=== PATIENT | male | born 1980 | race Caucasian/White ===

== ENCOUNTER 2019-11-03 23:48 | Emergency (ER) | payer OTHER, SELFPAY ==
[2019-11-03 23:57] VITALS: BP 134/80; PULSE 87; RESP 18; TEMP 37.1; O2SAT 97
--- NOTE | 2019-11-04 00:12 | ED.DENTAL ---
HPI - Dental/Oral General Chief complaint: Dental/Oral Stated complaint: abscess on face Time Seen by Provider: 11/03/19 23:57 Source: patient Mode of arrival: Family Vehicle Limitations: no limitations History of Present Illness HPI Narrative: 38-year-old gentleman with diffuse dental caries and periodontal disease has been noticing increasing pain in the right maxillary area. Today was pressing on the outside of his cheek and felt a gush of fluid and blood into his mouth. Also noted pain and increased swelling across the maxilla. Continues to drain into his mouth. He describes no fevers or chills. He does not have access to dental insurance or a dentist at this time but he and his are going to be able to have access to dental insurance in the near future in do have plans for more definitive care. Has chronic reflux with acid refluxing into his mouth and helps with tooth decay. He denies any recreational drug use, meth use or history with addiction. Related Data Previous Rx's Medication Instructions Recorded adapalene 0.1 % topical cream 1 applictn TOP BEDTIME #45 gram 09/29/18 amoxicillin 500 mg PO TID #21 cap 11/04/19 oxycodone-acetaminophen 1 tab PO Q6H PRN #14 tab 11/04/19 Allergies Allergy/AdvReac Type Severity Reaction Status Date / Time No Known Drug Allergies Allergy Verified 09/29/18 11:06 Review of Systems Review of Systems Narrative: Pertinent positive and negative findings as per HPI Remainder of review of systems is otherwise unremarkable for Constitutional: Fevers, chills, weakness ENT: No sore throat, neck pain, ear pain CV: Chest pain, palpitations, dyspnea on exertion Respiratory: Cough, wheeze, dyspnea GI: Nausea, vomiting, diarrhea, change in bowel habits, black or bloody stools Patient History Medical History Dental caries (Acute) Social History Smoking Status: Current every day smoker Smoking Status: Current every day smoker alcohol intake frequency: holidays/special occasions only Substance Use Type: marijuana Exam Narrative Exam Narrative: General: Alert appropriate in no acute distress HEENT: Diffuse caries, multiple broken teeth, periodontal disease with minor drainage appreciated, upper right side with no obvious abscess collection remaining. There is some swelling across the maxilla he has minor anterior cervical adenopathy Respiratory: Able to speak in full sentences, no obvious respiratory distress Cardiac: Regular rate and rhythm no murmurs Skin: No obvious rashes, warm and dry Neurologic: Grossly intact no obvious asymmetries or abnormalities Psych, appropriate insight and affect, cooperative Initial Vital Signs Initial Vital Signs: Vital Signs Temperature 98.8 F 11/03/19 23:57 Pulse Rate 87 11/03/19 23:57 Respiratory Rate 18 11/03/19 23:57 Blood Pressure 134/80 11/03/19 23:57 Pulse Oximetry 97 11/03/19 23:57 Course Orders Ordered: Discontinued Medications Amoxicillin (Trimox) 500 mg PO NOW ONE Stop: 11/04/19 00:07 Oxycodone/Acetaminophen (Percocet 5/325) 2 tab PO NOW ONE Stop: 11/04/19 00:07 Vital Signs Vital signs: Vital Signs - 8 hr 11/03/19 23:57 Temperature 98.8 F Pulse Rate 87 Respiratory Rate 18 Blood Pressure 134/80 Pulse Oximetry 97 MDM - Dental/Oral MDM Narrative Medical decision making narrative: Severe and diffuse dental decay with multiple sites for abscesses with nose single spot that is the obvious drainage point. Slight facial fullness. Antibiotics will certainly be appropriate definitive dental care would be most appropriate but unfortunately they are unable to access that. He is given a prescription for amoxicillin and 14 tablets of Percocet which he will use along with the Aleve he has at home. He is safe for home discharge Discharge Plan Departure Patient Disposition: Home Clinical Impression: Dental abscess, Dental caries Instructions: DI for Dental Pain Activity Restrictions/Additional Instructions: The fact that the infection has a drainage pathway into your mouth is reassuring. It may still continue to drain but will not continue to spread into other spaces. Using 400 mg of ibuprofen (2 ofzs-byx-sgxtxfo pills) and 1 Tylenol every 6 hours can be very helpful in controlling pain. For severe pain using 400mmg Ibuprofen and 1 percoset can help. Amoxicillin (antibioitc) will help with the infection but the real problem is the diffuse decay present. You will eventually need all of those upper teeth pulled. Please follow up with a dentist when you are able to do so. I wish you the best Prescriptions: New amoxicillin 500 mg capsule 500 mg PO TID Qty: 21 RF: 0 oxycodone-acetaminophen 5-300 mg tablet 1 tab PO Q6H PRN (Reason: pain) Qty: 14 RF: 0 No Action adapalene 0.1 % cream 1 applictn TOP BEDTIME Qty: 45 RF: 0 Referrals: Forest Sewell MD [Primary Care Provider] -
[2019-11-04] MEDS: OXYCODONE/ACETAMINOPHEN 5/325 TABLET 2 TAB PO (00:14)
[2019-11-04] MEDS: AMOXICILLIN 250 MG CAPSULE 500 MG PO (00:14)
--- NOTE | 2019-11-04 13:25 | PC.NURSE ---
Received phone call from [facility]. Provider sent new e script as substitution.
== END 2019-11-04 00:20 | disposition home or self-care (01) ==
PROVIDERS: Emergency Provider Emergency Medicine; Family Provider Family Medicine; PCP Family Medicine
DX: K04.7 Periapical abscess without sinus (principal); K02.9 Dental caries, unspecified
CPT/HCPCS: 99283

== ENCOUNTER 2021-02-16 14:37 | Emergency (ER) | payer OTHER, SELFPAY ==
[2021-02-16 14:46] VITALS: BP 132/74; PULSE 97; RESP 18; TEMP 37.4; O2SAT 99
--- NOTE | 2021-02-16 14:54 | ED_ITS ---
HPI - General Adult General Chief complaint: Dental/Oral Stated complaint: pressure behind eye, jaw and muslim, dizzy, abcess Time Seen by Provider: 02/16/21 14:46 Source: patient Mode of arrival: Ambulatory Limitations: no limitations History of Present Illness HPI narrative: Patient is a 40-year-old male who is here for evaluation of a swelling to his right upper jaw all most consistent with an abscess. He has had dental abscesses in the past. He also states that his right muslim hurts. He is dizzy and also has pressure behind his right eye. Has been doing Tylenol/ibuprofen. They state that they have attempted to contact a dentist however they have been unable to do so up to this point. He has been told that he needs to have his teeth extracted Related Data Previous Rx's Medication Instructions Recorded adapalene 0.1 % topical cream 1 applictn TOP BEDTIME #45 gram 09/29/18 penicillin V potassium 500 mg 500 mg PO QID 10 Days #40 tab 02/16/21 tablet Allergies Allergy/AdvReac Type Severity Reaction Status Date / Time No Known Drug Allergies Allergy Verified 09/29/18 11:06 Review of Systems Constitutional Comments: No fevers Eyes Comments: Pain behind the right eye ENT Comments: No sore throat Respiratory Respiratory: Reports system reviewed and no additional complaints, except as documented Integumentary/Breasts Skin/Breast: Reports system reviewed and no additional complaints, except as documented Hematologic/Lymphatic On Anticoagulants: No Patient History Medical History (Updated 02/16/21 @ 14:57 by Wood Spangler DO) Dental caries Social History Smoking Status: Current every day smoker Smoking Status: Current every day smoker alcohol intake frequency: holidays/special occasions only Substance Use Type: marijuana Exam Initial Vital Signs Initial Vital Signs: Vital Signs Temperature 99.4 F 02/16/21 14:46 Pulse Rate 97 H 02/16/21 14:46 Respiratory Rate 18 02/16/21 14:46 Blood Pressure 132/74 02/16/21 14:46 Pulse Oximetry 99 02/16/21 14:46 Const General: cooperative and comfortable HENMT Head: normal to inspection and normocephalic Ears: hearing grossly normal bilaterally Face and sinus: other (Swelling right maxilla) Teeth and gingiva: poor dentition Throat: posterior oropharynx normal Neck Neck: normal visual inspection Resp Effort & Inspection: normal respiratory effort Auscultation: clear to auscultation bilaterally Cardio Rate: regular rate GI Inspection: normal to inspection Skin General: no rashes or lesions noted Extrem General: normal to inspection Psych Appearance: grossly normal Course Orders Ordered: Discontinued Medications Ampicillin Sodium/Sulbactam (Sodium 3 gm/ Sodium Chloride) 100 mls @ 100 mls/hr IV NOW ONE Stop: 02/16/21 14:54 Last Infusion: 02/16/21 16:02 Dose: 0 mls/hr Documented by: Admin: 02/16/21 15:01 Dose: 100 mls/hr Documented by: SUMMER Vital Signs Vital signs: Vital Signs - 8 hr 02/16/21 14:46 Temperature 99.4 F Pulse Rate 97 H Respiratory Rate 18 Blood Pressure 132/74 Pulse Oximetry 99 Medical Decision Making MDM Narrative Medical decision making narrative: No respiratory distress, vital signs unremarkable. Is tolerating oral intake. Does have swelling in his right upper maxillary area but no fluctuance in this area. No defined abscess seen intraoral that would be amenable to incision and drainage. No indication for CT scan today. He was given antibiotics through the IV and was sent home with a prescription for antibiotics. Was informed that he does need to make contact with a dentist for more definitive treatment. He expressed understanding and agreement. Discharge Plan Departure Patient Disposition: Home Clinical Impression: Dental abscess Instructions: Tooth Abscess Activity Restrictions/Additional Instructions: Your physical exam today is consistent with a dental infection however there was no abscess noted inside your mouth that would be amendable to drainage here in the emergency department. It is important that you may contact with a dentist as the specialty will be required for more definitive treatment of your symptoms. Take the antibiotics as directed. Return to the emergency department for any new symptoms. Prescriptions: New penicillin V potassium 500 mg tablet 500 mg PO QID 10 Days Qty: 40 RF: 0 No Action adapalene 0.1 % cream 1 applictn TOP BEDTIME Qty: 45 RF: 0 Referrals: Forest Sewell MD [Primary Care Provider] -
[2021-02-16] MEDS: AMPICILLIN/SULBACTAM 3 GM 3 GM in SODIUM CHLORIDE 0.9% 100 ML IV (15:01)
[2021-02-16] MEDS: KETOROLAC 30 MG/ML VIAL IV (16:27)
== END 2021-02-16 16:28 | disposition home or self-care (01) ==
PROVIDERS: Emergency Provider Emergency Medicine; Family Provider Family Medicine; PCP Family Medicine
DX: K04.7 Periapical abscess without sinus (principal); R51.9 Headache, unspecified; R42 Dizziness and giddiness
CPT/HCPCS: 36415; 96365; 96375; 99284; J0295; J1885

== ENCOUNTER 2021-03-14 11:31 | Emergency (ER) | payer OTHER, SELFPAY ==
[2021-03-14] VITALS (11 sets, daily range): BP systolic 114–174; BP diastolic 76–87; PULSE 52–94; RESP 18–20; TEMP 36.6–36.8; O2SAT 95–100; BMI 20.7
--- NOTE | 2021-03-14 11:40 | PC.NURSE ---
pH bilateral eyes 7.0
--- NOTE | 2021-03-14 12:21 | DI.RAD.S_ITS ---
PROCEDURE: XR CHEST 1V INDICATIONS: gasoline ingestion TECHNIQUE: One view of the chest was acquired. COMPARISON: [facility], , CHEST 2 VIEW, 06/18/2017, 20:45. FINDINGS: Surgical changes and devices: None. Lungs and pleura: Lungs are clear. No pleural effusions or pneumothorax. Mediastinum: Mediastinal contours appear normal. Heart size is normal. Bones and chest wall: No suspicious bony lesions. Overlying soft tissues appear unremarkable. IMPRESSION: No acute cardiopulmonary pathology. Dictated by: Keaton Reid M.D. on 03/14/2021 at 13:00 Approved by: Keaton Reid M.D. on 03/14/2021 at 13:01
--- NOTE | 2021-03-14 12:22 | ED.GENADULT ---
HPI - General Adult General Chief complaint: Environmental Exposure Stated complaint: Got gasoline down throat/puking blood Time Seen by Provider: 03/14/21 12:09 Source: patient Mode of arrival: Ambulatory History of Present Illness HPI narrative: 40-year-old gentleman with state history of hiatal hernia severe reflux with significant dental decay due to the severity of his reflux presents after accidentally ingesting gasoline while at work. 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 He washes eyes out and tried to rinse his face off as well as possible. He vomited immediately for approximately 5 minutes. 20 minutes later he again had severe nausea and significant vomiting with clots of red blood. He continues to be somewhat nauseated and complaining of upper abdominal pain. Vomiting has stopped. He is noticing some skin irritation over his face and upper chest. He complains of mild dyspnea but no significant cough. Related Data Previous Rx's Medication Instructions Recorded adapalene 0.1 % topical cream 1 applictn TOP BEDTIME #45 gram 09/29/18 Allergies Allergy/AdvReac Type Severity Reaction Status Date / Time No Known Drug Allergies Allergy Verified 09/29/18 11:06 Review of Systems Review of Systems Narrative: Pertinent positive and negative findings as per HPI Remainder of review of systems is otherwise unremarkable for Constitutional: Fevers, chills, weakness ENT: No sore throat, neck pain, ear pain CV: Chest pain, palpitations, : Dysuria, hematuria, Patient History Medical History (Updated 03/14/21 @ 18:00 by Yolande Stephenson MD) Dental caries Social History Smoking Status: Current every day smoker Smoking Status: Current every day smoker alcohol intake frequency: holidays/special occasions only Substance Use Type: marijuana Exam Narrative Exam Narrative: General: Healthy appearing, in mild distress. Able to give a complete and coherent history. Well-nourished well-developed HEENT: Moist mucous membranes, normal sclera with reactive pupils, minimally injected with normal vision and normal pH of both eyes. Minor irritation to the skin around his nose and mouth under his aranda. Neck: No JVD, supple. incidentally noted very black 2-3 mm freckle left supraclavicular fossa. Minor erythema over the neck and upper chest from superficial exposure Respiratory: Lungs are clear to auscultation, no wheezing no rales no rhonchi. Full and symmetrical air movement Cardiac: Regular rate and rhythm no murmurs no bruits Abdomen: Soft, minor tenderness in the epigastrium without rebound or guarding, good bowel tones, no flank pain Skin: Warm and dry, irritation as described above Neurologic: Grossly neurologically intact with no obvious asymmetries or abnormalities Extremities: No trauma, well perfused Psych: Cooperative, appropriate insight and affect Initial Vital Signs Initial Vital Signs: Vital Signs Temperature 98.2 F 03/14/21 11:41 Pulse Rate 94 H 03/14/21 11:41 Respiratory Rate 18 03/14/21 11:41 Blood Pressure 174/87 H 03/14/21 11:41 Pulse Oximetry 95 03/14/21 11:41 Course Orders Ordered: ED Orders 03/14/21 12:21 XR chest 1V Stat 03/14/21 12:43 Complete Blood Count AUTO DIFF Stat Comprehensive Metabolic Panel Stat Type and Screen Stat 03/14/21 16:52 XR chest 1V Stat Discontinued Medications Sodium Chloride (Normal Saline 0.9%) 1,000 mls @ 1,000 mls/hr IV BOLUS ONE Stop: 03/14/21 13:19 Last Infusion: 03/14/21 13:57 Dose: 0 mls/hr Documented by: Admin: 03/14/21 12:41 Dose: 1,000 mls/hr Documented by: ADELE Ondansetron HCl (Ondansetron 4 Mg/2 Ml Inj) 4 mg IV NOW ONE Stop: 03/14/21 12:21 Last Admin: 03/14/21 12:41 Dose: 4 mg Documented by: ADELE Pantoprazole Sodium (Pantoprazole 40 Mg Vial) 40 mg IV NOW ONE Stop: 03/14/21 12:21 Last Admin: 03/14/21 12:41 Dose: 40 mg Documented by: ADELE Vital Signs Vital signs: Vital Signs - 8 hr 03/14/21 11:41 03/14/21 12:44 03/14/21 12:45 Temperature 98.2 F Pulse Rate 94 H 67 Respiratory Rate 18 Blood Pressure 174/87 H 134/81 Pulse Oximetry 95 99 99 03/14/21 13:00 03/14/21 13:30 03/14/21 14:00 Temperature Pulse Rate 62 61 61 Respiratory Rate Blood Pressure 129/81 123/83 132/81 Pulse Oximetry 100 100 100 03/14/21 14:30 03/14/21 15:00 03/14/21 15:30 Temperature Pulse Rate 58 L 52 L 57 L Respiratory Rate Blood Pressure 126/77 114/80 116/79 Pulse Oximetry 100 100 100 03/14/21 16:00 Temperature Pulse Rate 64 Respiratory Rate Blood Pressure 124/76 Pulse Oximetry 100 Medical Decision Making Lab Data Result diagrams: 03/14/21 12:43 03/14/21 12:43 Labs: Lab Results 03/14/21 03/14/21 03/14/21 Range/Units 12:43 12:43 12:43 WBC 11.2 H (4.5-11.0) X10^3/uL RBC 4.52 (4.5-5.9) X10^6/uL Hgb 14.2 (13.5-17.5) g/dL Hct 42.6 (41-53) % MCV 94.1 (80-100) fL MCH 31.4 (26-34) PG MCHC 33.3 (30-36) % RDW 13.7 (11.6-14.8) % Plt Count 301 (150-400) X10^3/uL Neut % (Auto) 69.0 (50-75) % Lymph % (Auto) 20.2 L (25-40) % [place] % (Auto) 9.3 (3-14) % Eos % (Auto) 0.9 L (2-4) % Baso % (Auto) 0.6 (0-2) % Neut # (Auto) 7700 H (4814-5085) /uL Lymph # (Auto) 2300 (6755-5778) /uL [place] # (Auto) 1000 H (0-900) /uL Eos # (Auto) 100 (0-450) /uL Baso # (Auto) 100 (0-100) /uL Sodium 137 (137-145) mmol/L Potassium 4.3 (3.4-5.1) mmol/L Chloride 102 (98-107) mmol/L Carbon Dioxide 27 (22-32) mmol/L BUN 14 (9-20) mg/dL Creatinine 0.59 L (0.66-1.25) mg/dL Estimated GFR > 60.0 (>60) mL/min BUN/Creatinine Ratio 23.7 H (6-22) Glucose 108 H (70-100) mg/dL Calcium 9.6 (8.4-10.2) mg/dL Total Bilirubin 0.4 (0.2-1.3) mg/dL AST 39 (17-59) IU/L ALT 25 (<50) IU/L Alkaline Phosphatase 55 (38-126) U/L Total Protein 7.5 (6.3-8.2) g/dL Albumin 4.7 (3.5-5.0) g/dL Globulin 2.8 (1.7-4.1) g/dL Albumin/Globulin Ratio 1.7 (1.0-2.8) Blood Type A Positive Antibody Screen Negative Imaging Data Chest x-ray: Radiologist's Impression: FINDINGS: Surgical changes and devices: None. Lungs and pleura: Lungs are clear. No pleural effusions or pneumothorax. Mediastinum: Mediastinal contours appear normal. Heart size is normal. Bones and chest wall: No suspicious bony lesions. Overlying soft tissues appear unremarkable. IMPRESSION: No acute cardiopulmonary pathology. Dictated by: Keaton Reid M.D. on 03/14/2021 at 13:00 Repeat prior to D/c FINDINGS: Surgical changes and devices: None. Lungs and pleura: The lungs remain clear. No developing pneumothorax or effusion. Mediastinum: No central venous congestion. Cardiomediastinal contour is stable. Bones and chest wall: No suspicious bony lesions. Overlying soft tissues appear unremarkable. IMPRESSION: 1. No radiographic evidence of pulmonary edema. Dictated by: Yee Samson M.D. on 03/14/2021 at 17:14 [facility] Narrative Medical decision making narrative: Otherwise healthy 40-year-old gentleman with accidental ingestion of gasoline while at work today. eye wash was adequate at work He takes a shower after closing remove here in the emergency department in face and upper chest skin irritation are improving Mildly short of breath without wheezing or crackles. 2 L of oxygen is provided for comfort. Initial labs are reassuring At 4:30 p.m. will repeat chest x-ray and re-evaluate pulmonary status. Chest x-ray is unremarkable. Patient is feeling well. He is hungry and nausea is completely resolved. He has not had any additional vomiting since arriving in the emergency department. After 6 hours of observation in the emergency department he is safe for home discharge Discharge Plan Departure Patient Disposition: Home Clinical Impression: Exposure to polycyclic aromatic hydrocarbons Instructions: DI for Inhalation Injury Activity Restrictions/Additional Instructions: Thank you for coming in today You did a perfect job of rinsing your eyes your face of soon as you were able to do so Your lab work was very reassuring. You have not had any additional vomiting or bleeding during your 6 hour stay in the emergency department. Your initial and then repeat chest x-ray were both very reassuring. If you have worsening symptoms or new developments, please feel free to return to the emergency department. Prescriptions: No Action adapalene 0.1 % cream 1 applictn TOP BEDTIME Qty: 45 RF: 0 Referrals: Forest Sewell MD [Primary Care Provider] -
[2021-03-14] MEDS: ONDANSETRON 4 MG/2 ML INJ IV (12:41)
[2021-03-14] MEDS: SODIUM CHLORIDE 0.9% 1,000 ML 1000 ML IV (12:41)
[2021-03-14] MEDS: PANTOPRAZOLE 40 MG VIAL IV (12:41)
[2021-03-14 12:52] LABS: Add Manual Diff / Slide Review NO; Basophils Absolute Auto 100 /uL (0-100); Basophils Percent Auto 0.6 % (0-2); Eosinophils Absolute Auto 100 /uL (0-450); Eosinophils Percent Auto 0.9 % (2-4); Hematocrit 42.6 % (41-53); Hemoglobin 14.2 g/dL (13.5-17.5); Lymphocytes Absolute Auto 2300 /uL (1100-4500); Lymphocytes Percent Auto 20.2 % (25-40); Mean Corpuscular HGB Conc 33.3 % (30-36); Mean Corpuscular Hemoglobin 31.4 PG (26-34); Mean Corpuscular Volume 94.1 fL (80-100); Monocytes Absolute Auto 1000 /uL (0-900); Monocytes Percent Auto 9.3 % (3-14); Neutrophils Absolute Auto 7700 /uL (1500-7000); Platelet Count 301 X10^3/uL (150-400); Red Blood Cell Count 4.52 X10^6/uL (4.5-5.9); Red Cell Distribution Width 13.7 % (11.6-14.8); White Blood Cell Count 11.2 X10^3/uL (4.5-11.0)
[2021-03-14 13:21] LABS: Alanine Aminotransferase 25 IU/L (<50); Albumin 4.7 g/dL (3.5-5.0); Albumin Globulin Ratio 1.7 (1.0-2.8); Alkaline Phosphatase 55 U/L (38-126); Aspartate Aminotransferase 39 IU/L (17-59); BUN Creatinine Ratio 23.7 (6-22); Bilirubin Total 0.4 mg/dL (0.2-1.3); Blood Urea Nitrogen 14 mg/dL (9-20); Calcium 9.6 mg/dL (8.4-10.2); Carbon Dioxide 27 mmol/L (22-32); Chloride 102 mmol/L (98-107); Estimated Glomerular Filt Rate > 60.0 mL/min (>60); Globulin 2.8 g/dL (1.7-4.1); Glucose 108 mg/dL (70-100); HEMOLYSIS < 15 (0-50); Potassium 4.3 mmol/L (3.4-5.1); Sodium 137 mmol/L (137-145); Total Protein 7.5 g/dL (6.3-8.2)
--- NOTE | 2021-03-14 16:52 | DI.RAD.S_ITS ---
PROCEDURE: XR CHEST 1V INDICATIONS: gasoline exposure TECHNIQUE: One view of the chest was acquired. COMPARISON: [facility], CR, XR CHEST 1V, 03/14/2021, 12:52. FINDINGS: Surgical changes and devices: None. Lungs and pleura: The lungs remain clear. No developing pneumothorax or effusion. Mediastinum: No central venous congestion. Cardiomediastinal contour is stable. Bones and chest wall: No suspicious bony lesions. Overlying soft tissues appear unremarkable. IMPRESSION: 1. No radiographic evidence of pulmonary edema. Dictated by: Yee Samson M.D. on 03/14/2021 at 17:14 Approved by: Yee Samson M.D. on 03/14/2021 at 17:16
== END 2021-03-14 18:32 | disposition home or self-care (01) ==
PROVIDERS: Emergency Provider Emergency Medicine; Family Provider Family Medicine; PCP Family Medicine
DX: Z77.028 Contact with and (suspected) exposure to other hazardous aromatic compounds (principal); R11.2 Nausea with vomiting, unspecified; Y99.0 Civilian activity done for income or pay
CPT/HCPCS: 36415; 71045; 80053; 85025; 86850; 86900; 86901; 96361; 96374; 96375; 99284; C9113; J2405

== ENCOUNTER → 2021-04-16 15:25 | Outpatient (CLI) | payer OTHER, SELFPAY ==
--- NOTE | 2021-04-16 15:28 | DI.RAD.S_ITS ---
PROCEDURE: XR CERVICAL SPINE 2V OR 3V INDICATIONS: Cervical radiculopathy TECHNIQUE: 3 view(s) of the cervical spine were acquired. COMPARISON: None. FINDINGS: Bones: No fractures or dislocations to the T2 level. The lateral masses of C1 appear intact on the odontoid view. No suspicious bony lesions. Intervertebral disc height is normally preserved at all levels. Soft tissues: No prevertebral soft tissue swelling. IMPRESSION: No fracture. No osseous lesion. If symptoms and/or clinical suspicion for pathology persists, evaluation with MRI should be considered for further assessment. Dictated by: Kellie Desouza MD, PhD on 04/16/2021 at 17:25 Approved by: Kellie Desouza MD, PhD on 04/16/2021 at 17:26
--- NOTE | 2021-04-16 15:28 | DI.RAD.S_ITS ---
PROCEDURE: XR TIBIA FIBULA LT 2V INDICATIONS: Evaluate surgical hardware TECHNIQUE: 2 views of the tibia and fibula were acquired. COMPARISON: [facility], CR, TIB/FIB 2V LEFT, 08/26/2016, 16:18. FINDINGS: Bones: No fractures or dislocations. Intact intramedullary riaz. No evidence of hardware failure or loosening. No suspicious bony lesions. Soft tissues: No suspicious soft tissue calcifications or masses. IMPRESSION: Unremarkable appearance of surgical hardware. Dictated by: Elfego Chang M.D. on 04/16/2021 at 17:03 Approved by: Elfego Chang M.D. on 04/16/2021 at 17:03
[2021-04-16 16:52] LABS: Appearance Urine UA CLEAR; Bilirubin Urine UA NEGATIVE (NEGATIVE); Color Urine UA YELLOW; Glucose Urine UA NEGATIVE (Negative); Ketones Urine UA NEGATIVE (NEGATIVE); Leukocyte Esterase Urine UA NEGATIVE (NEGATIVE); Nitrite Urine UA NEGATIVE (Negative); Occult Blood Urine UA NEGATIVE (Negative); Protein Urine UA NEGATIVE (Negative); Urobilinogen Urine UA 0.2 E.U./dL (0.2)
[2021-04-16 17:07] LABS: Bacteria Urine Occasional (0-1); Culture Indicated Urine Cult Not Indicated; RBC Urine 0-1/HPF (0-5/HPF); WBC Urine None Seen (0-5/HPF)
[2021-04-16 17:09] LABS: Cholesterol 196 mg/dL (140-199); HDL Cholesterol 50 mg/dL (40-60); LDL Cholesterol Calculated 126 mg/dL (<100); Triglycerides 98 mg/dL (35-150)
== END ==
PROVIDERS: Family Provider Family Medicine; PCP Student in an Organized Health Care Education/Training Program; Referring Provider Student in an Organized Health Care Education/Training Program; Visit Provider Student in an Organized Health Care Education/Training Program
DX: Z13.220 Encounter for screening for lipoid disorders (principal); R10.31 Right lower quadrant pain; R39.198 Other difficulties with micturition
CPT/HCPCS: 36415; 72040; 73590; 80061; 81001

== ENCOUNTER → 2021-05-06 10:40 | Outpatient (CLI) | payer OTHER, SELFPAY ==
--- NOTE | 2021-05-06 10:41 | DI.US.S_ITS ---
PROCEDURE: US SCROTUM INDICATIONS: RIGHT GROIN PAIN. TECHNIQUE: Real-time scanning was performed of the scrotum and testicles, with image documentation. Color and pulse Doppler interrogation was performed of both testicles. COMPARISON: None. FINDINGS: Right: Testicle is normal in size at 3.8 x 2.9 x 1.7 cm, and homogenous in echotexture. Epididymis is normal in overall size and morphology. No hydrocele or varicoceles. Overlying scrotal skin is normal in thickness. No sonographic evidence of hernia. Left: Testicle is normal in size at 3.7 x 2.2 x 1.9 cm, and homogeneous in echotexture. Epididymis is normal in overall size and morphology. No hydrocele or varicoceles. Overlying scrotal skin is normal in thickness. Doppler: Color and pulse Doppler demonstrate normal and symmetric arterial flow in both testicles. IMPRESSION: No significant abnormality. Dictated by: Reji Jorgensen M.D. on 05/06/2021 at 11:39 Approved by: Reji Jorgensen M.D. on 05/06/2021 at 11:40
== END ==
PROVIDERS: Family Provider Family Medicine; PCP Student in an Organized Health Care Education/Training Program; Referring Provider Student in an Organized Health Care Education/Training Program; Visit Provider Student in an Organized Health Care Education/Training Program
DX: R10.31 Right lower quadrant pain (principal); R39.198 Other difficulties with micturition
CPT/HCPCS: 76870

== ENCOUNTER 2021-10-25 11:30 | Emergency (ER) | payer SELFPAY ==
[2021-10-25] VITALS (7 sets, daily range): BP systolic 134–138; BP diastolic 74–81; PULSE 66–74; RESP 16–18; TEMP 36.9; O2SAT 97–100; BMI 21.1
[2021-10-25] MEDS: SODIUM CHLORIDE 0.9% 1,000 ML 1000 ML IV ×2 (12:36→14:41)
[2021-10-25 12:39] LABS: Add Manual Diff / Slide Review NO; Basophils Absolute Auto 100 /uL (0-100); Basophils Percent Auto 0.5 % (0-2); Eosinophils Absolute Auto 0 /uL (0-450); Eosinophils Percent Auto 0.2 % (2-4); Hematocrit 41.4 % (41-53); Hemoglobin 14.1 g/dL (13.5-17.5); Lymphocytes Absolute Auto 2100 /uL (1100-4500); Lymphocytes Percent Auto 11.8 % (25-40); Mean Corpuscular HGB Conc 34.2 % (30-36); Mean Corpuscular Hemoglobin 31.7 PG (26-34); Mean Corpuscular Volume 92.9 fL (80-100); Monocytes Absolute Auto 1900 /uL (0-900); Monocytes Percent Auto 10.8 % (3-14); Neutrophils Absolute Auto 13700 /uL (1500-7000); Neutrophils Percent Auto 76.7 % (50-75); Platelet Count 269 X10^3/uL (150-400); Red Blood Cell Count 4.46 X10^6/uL (4.5-5.9); Red Cell Distribution Width 13.5 % (11.6-14.8); White Blood Cell Count 17.9 X10^3/uL (4.5-11.0)
--- NOTE | 2021-10-25 12:42 | PC.NURSE ---
Pt reports pain for the past week in his upper right mouth, right side of face, and head. States prior hx of abscesses. Visual inspections reveals swelling and visible decay of several upper right molars. Reports tx of general pain reliever did not help. Reports taking 4 doses of penicillin that were leftover from last time. Pt is warm to touch, oral temp of 98.4. Reports dizziness and that soup comes out of my nose when he eats. Denies difficulty swallowing. Call light within reach. Encouraged to use for needs.
--- NOTE | 2021-10-25 12:56 | ED.DENTAL ---
HPI - Dental/Oral General Chief complaint: Dental/Oral Stated complaint: sent from [facility], abscess on rt side of face Time Seen by Provider: 10/25/21 12:41 Source: patient Mode of arrival: Ambulatory Limitations: no limitations History of Present Illness HPI Narrative: This is a 40-year-old male comes emergency department with complaint of abscess on the right side of his face. Patient states he has had infection on the right side for about a week, it has been increasing in size he states he had increasing redness and swelling overnight extending up to the side of his face and over the hard palate inside his mouth. He states this morning on his way from the walk-in clinic to the emergency department he started having active purulent drainage from the site. Patient denies fevers. No chills. He has pain at the area. He states he has had poor dentition in the past he has had infections before. He denies any vomiting. Patient has not had any swelling with airway, tongue, he does not any difficulty breathing. He starting to feel nauseated be thinks that is from some the purulent drainage going to his stomach. Patient denies any other symptoms. No other GI or urinary symptoms. He denies any daily medications. No known drug allergies. He has taken several doses of penicillin that he had left over from prior dental infection over the past 36 hours. Related Data Previous Rx's Medication Instructions Recorded clindamycin HCl 300 mg capsule 300 mg PO QID #40 cap 10/25/21 Allergies Allergy/AdvReac Type Severity Reaction Status Date / Time No Known Drug Allergies Allergy Verified 04/16/21 14:24 Review of Systems Review of Systems ROS Unobtainable: All systems reviewed & are unremarkable except as noted in HPI and below Patient History Medical History Ankle pain (~2016) Dental caries Fracture (~2016) Hearing loss Hiatal hernia (~2008) Shoulder pain (~2019) Vision disorder Surgical History Anesthesia History of endoscopy (~2007) History of surgery (~07/2016) Family History Father Cancer Mental health problem Grandfather Cancer Grandfather Cancer Social History Smoking Status: Current every day smoker Smoking Status: Current every day smoker alcohol intake frequency: holidays/special occasions only Substance Use Type: marijuana Exam Narrative Exam Narrative: GEN: well nourished, well appearing male, alert and oriented x 3, patient appears to be in mild distress. HEENT: Atraumatic, pupils are equal round reactive to light, extraocular movements are intact, nares are clear, TMs are clear with no fluid, there is no conjunctival pallor. Throat is clear without any exudates, erythema, tonsillar enlargement or uvular deviation, patient has fluctuant area with scant drainage but has a clear opening that is draining purulent fluid. There appears to be erythema extending over the outer cheek with some mild swelling at the right mandible, patient has some mild swelling of the in her gums. And slight discoloration over the upper palate but no significant deformity. No other intraoral swelling is appreciated of the tongue or posterior oropharynx. HEART: Regular rate and rhythm without murmur, clicks, rubs. No carotid bruits, pulses are equal in upper and lower extremities LUNGS:Lungs clear to auscultation, no wheezes, rales, crackles, chest moves symmetrically ABD:bowel sounds normal, soft, non-tender, no guarding, rebound, rigidity, no masses noted, no hepatosplenomegaly MSCL:muscles strength 5/5 upper and lower extremities, full range of motion, normal gait NEURO:CN 2-12 intact, sensation normall SKIN: See above. Initial Vital Signs Initial Vital Signs: Vital Signs Pulse Rate 74 10/25/21 12:08 Blood Pressure 136/78 10/25/21 12:08 Pulse Oximetry 97 10/25/21 12:08 Course Orders Ordered: Discontinued Medications Sodium Chloride (Normal Saline 0.9%) 1,000 mls @ 1,000 mls/hr IV BOLUS ONE Stop: 10/25/21 13:26 Last Infusion: 10/25/21 14:41 Dose: 0 mls/hr Documented by: Admin: 10/25/21 12:36 Dose: 1,000 mls/hr Documented by: VERONICA Clindamycin Phosphate (Cleocin) 900 mg in 50 mls @ 50 mls/hr IV NOW ONE Stop: 10/25/21 14:13 Last Infusion: 10/25/21 14:41 Dose: 0 mls/hr Documented by: Admin: 10/25/21 13:24 Dose: 50 mls/hr Documented by: VERONICA Sodium Chloride (Normal Saline 0.9%) 1,000 mls @ 1,000 mls/hr IV BOLUS ONE Stop: 10/25/21 14:23 Last Infusion: 10/25/21 16:39 Dose: 0 mls/hr Documented by: Admin: 10/25/21 14:41 Dose: 1,000 mls/hr Documented by: JAMI Ketorolac Tromethamine (Ketorolac 30 Mg/Ml Vial) 15 mg IV NOW ONE Stop: 10/25/21 13:15 Last Admin: 10/25/21 13:23 Dose: 15 mg Documented by: VERONICA Consultations Consultation #1: Dr. Howard, ENT recommends possibly [facility] locally or [facility]. They have ENT and oral surgeon. Can likely go down his outpatient and be seen in the next several days. Consultation #2: Dr. Dobson, FS. Discussed patient case, imaging feels patient be appropriate to follow up with him this week. Plan for antibiotics such as clinda, penicillin or amoxicillin would be appropriate. Patient is to call for an appointment after the weekend. Vital Signs Vital signs: Vital Signs - 8 hr 10/25/21 12:08 10/25/21 12:12 10/25/21 12:30 Temperature 98.4 F Pulse Rate 74 74 70 Respiratory Rate 16 Blood Pressure 136/78 136/74 Pulse Oximetry 97 98 97 10/25/21 14:38 10/25/21 14:39 Temperature Pulse Rate 67 Respiratory Rate Blood Pressure 134/78 Pulse Oximetry 100 100 MDM - Dental/Oral Lab Data Result diagrams: 10/25/21 12:20 10/25/21 12:20 Labs: Lab Results 10/25/21 10/25/21 10/25/21 Range/Units 12:20 12:20 12:40 WBC 17.9 H (4.5-11.0) X10^3/uL RBC 4.46 L (4.5-5.9) X10^6/uL Hgb 14.1 (13.5-17.5) g/dL Hct 41.4 (41-53) % MCV 92.9 (80-100) fL MCH 31.7 (26-34) PG MCHC 34.2 (30-36) % RDW 13.5 (11.6-14.8) % Plt Count 269 (150-400) X10^3/uL Neut % (Auto) 76.7 H (50-75) % Lymph % (Auto) 11.8 L (25-40) % [place] % (Auto) 10.8 (3-14) % Eos % (Auto) 0.2 L (2-4) % Baso % (Auto) 0.5 (0-2) % Neut # (Auto) 96400 H (8172-2405) /uL Lymph # (Auto) 2100 (2485-8347) /uL [place] # (Auto) 1900 H (0-900) /uL Eos # (Auto) 0 (0-450) /uL Baso # (Auto) 100 (0-100) /uL Sodium 138 (137-145) mmol/L Potassium 4.1 (3.4-5.1) mmol/L Chloride 104 (98-107) mmol/L Carbon Dioxide 27 (22-32) mmol/L BUN 9 (9-20) mg/dL Creatinine 0.62 L (0.66-1.25) mg/dL Estimated GFR > 60 (>60) mL/min BUN/Creatinine Ratio 14.5 (6-22) Glucose 140 H (70-100) mg/dL Lactate 0.5 L (0.7-2.1) mmol/L Calcium 8.8 (8.4-10.2) mg/dL Total Bilirubin 0.3 (0.2-1.3) mg/dL AST 31 (17-59) IU/L ALT 25 (<50) IU/L Alkaline Phosphatase 66 (38-126) U/L Total Protein 7.4 (6.3-8.2) g/dL Albumin 4.4 (3.5-5.0) g/dL Globulin 3.0 (1.7-4.1) g/dL Albumin/Globulin Ratio 1.5 (1.0-2.8) Lipase 44 (23-300) U/L Procalcitonin 0.05 (<0.5) ng/mL Imaging Data CT soft tissue neck: Radiologist's Impression: [address] [address] [address] Scan Report Signed Patient: Chinyere Amador MR#: [id number] : 1980 Acct:[id number] Age/Sex: 40 / M Date of Service: 10/25/21 Loc: ED Accession Number: [id number] ?? Procedure: CT soft tissue neck w con Ordering Provider: Naomi Mcnamara D.O. PROCEDURE:? CT SOFT TISSUE NECK W CON ? INDICATIONS:? face/neck cellulitis w/ draining dental abscess ? TECHNIQUE:? After the administration of intravenous contrast, 3.0 mm axial sections acquired from the sella to the aortic arch.? Additional oblique axial 3.0 mm sections acquired through the pharynx.? 3 mm thick coronal and sagittal reformats were generated.? For radiation dose reduction, the following was used:? automated exposure control.? ? COMPARISON:? None. ? FINDINGS:? Image quality:? Excellent.? ? Lymph nodes:? No enlarged lymph nodes seen throughout the neck.? ? Vessels:? Visualized vasculature appears patent.? ? Neck spaces:? The oropharynx, nasopharynx, and pharynx demonstrate no mucosal lesions.? The vocal cords, false vocal cords, pyriform sinuses, epiglottis, vallecula, and tongue base all appear normal.? Extramucosal spaces appear unremarkable.? ? Glands:? The parotid and submandibular glands appear normal.? Thyroid gland is unremarkable.? ? Miscellaneous:? Visualized brain and orbits appear normal.? Lung apices appear clear.? Superficial soft tissues appear normal.? Scattered areas of soft tissue air in fluid are noted surrounding and posterior to the right upper posterior tooth.? Air tracks anteriorly.? There is thickening the overlying soft tissues appearing heterogeneous.? Soft tissue thickening extends anteriorly to the midline, as well as left of midline maxilla.? There is a soft tissue lucency measuring 2.2 x 2.6 cm in the anterior superior maxilla. ? Mild mucosal thickening is present within the right maxillary sinus. ? ? IMPRESSION:? ? Foci of soft tissue thickening, air in fluid are noted surrounding the posterior most right upper tooth suggestive of infection or inflammation.? While there is no discretely defined enhancing fluid collection, overall appearance is suggestive of phlegmon/developing abscess.? It is noted that air in soft tissue prominence due track anteriorly along the soft tissues extending to the anterior as well as anterior left aspect of the maxilla. ? Lytic focus within the anterior maxilla as above.? While this could be related to a chronic focus of infection, etiology such as odontogenic/nonodontogenic tumors should be considered. ? Dictated by: Sangeetha Franco M.D. on 10/25/2021 at 13:51 ? ? Approved by: Sangeetha Franco M.D. on 10/25/2021 at 14:11?? MDM Narrative Medical decision making narrative: This is a 40-year-old male with tobacco abuse but no other past medical history with reported poor dentition. Patient has had prior dental infections had somewhat atypical drainage of pus and is actively draining easily with palpation. Patient had CT imaging obtained which shows a developing phlegmon/abscess possible adult to Perfecto tumor but seems less likely patient was given dose of IV antibiotics, case was discussed with ENT and OMFS. Both feel patient is okay to follow-up outpatient either locally with [facility] or [facility]. Patient was given both options and consultation was obtained from Dr. Dobson locally. Patient was given prescription request to be printed by patient himself. He defers pain medications and discussed return precautions. Discharge Plan Departure Patient Disposition: Home Clinical Impression: Abscess, dental Activity Restrictions/Additional Instructions: Follow-up with Dr. Dobson the local [facility], oral maxillofacial surgeon. Call Thursday morning to set up follow-up appointment. He is expecting to hear from you for the office. You have what appears to be a developing infection in the bone or the maxilla that is becoming an and this is draining. Continue to allow the area to drain. Take antibiotics until completely gone. You can continue Tylenol 1000 mg every 6 hours and/or ibuprofen 600 mg every 6 hours. Please return for fevers, increasing swelling, swelling of the tongue, underneath of the tongue, airway, difficulty swallowing, vomiting, stridor or high-pitched wheezing, increasing neck headache or facial pain or other new or concerning symptoms. Prescriptions: New clindamycin HCl 300 mg capsule 300 mg PO QID Qty: 40 0RF Referrals: Domingo Constantino MD [Primary Care Provider] - Juan Miguel Dobson DMD [Physician] -
[2021-10-25 12:59] LABS: Lactate (Lactic Acid) 0.5 mmol/L (0.7-2.1)
[2021-10-25 12:59] LABS: Alanine Aminotransferase 25 IU/L (<50); Albumin 4.4 g/dL (3.5-5.0); Albumin Globulin Ratio 1.5 (1.0-2.8); Alkaline Phosphatase 66 U/L (38-126); Aspartate Aminotransferase 31 IU/L (17-59); BUN Creatinine Ratio 14.5 (6-22); Bilirubin Total 0.3 mg/dL (0.2-1.3); Blood Urea Nitrogen 9 mg/dL (9-20); Calcium 8.8 mg/dL (8.4-10.2); Carbon Dioxide 27 mmol/L (22-32); Chloride 104 mmol/L (98-107); Estimated Glomerular Filt Rate > 60 mL/min (>60); Glucose 140 mg/dL (70-100); HEMOLYSIS < 15 (0-50); Lipase 44 U/L (23-300); Potassium 4.1 mmol/L (3.4-5.1); Sodium 138 mmol/L (137-145); Total Protein 7.4 g/dL (6.3-8.2)
--- NOTE | 2021-10-25 13:13 | DI.CT.S_ITS ---
PROCEDURE: CT SOFT TISSUE NECK W CON INDICATIONS: face/neck cellulitis w/ draining dental abscess TECHNIQUE: After the administration of intravenous contrast, 3.0 mm axial sections acquired from the sella to the aortic arch. Additional oblique axial 3.0 mm sections acquired through the pharynx. 3 mm thick coronal and sagittal reformats were generated. For radiation dose reduction, the following was used: automated exposure control. COMPARISON: None. FINDINGS: Image quality: Excellent. Lymph nodes: No enlarged lymph nodes seen throughout the neck. Vessels: Visualized vasculature appears patent. Neck spaces: The oropharynx, nasopharynx, and pharynx demonstrate no mucosal lesions. The vocal cords, false vocal cords, pyriform sinuses, epiglottis, vallecula, and tongue base all appear normal. Extramucosal spaces appear unremarkable. Glands: The parotid and submandibular glands appear normal. Thyroid gland is unremarkable. Miscellaneous: Visualized brain and orbits appear normal. Lung apices appear clear. Superficial soft tissues appear normal. Scattered areas of soft tissue air in fluid are noted surrounding and posterior to the right upper posterior tooth. Air tracks anteriorly. There is thickening the overlying soft tissues appearing heterogeneous. Soft tissue thickening extends anteriorly to the midline, as well as left of midline maxilla. There is a soft tissue lucency measuring 2.2 x 2.6 cm in the anterior superior maxilla. Mild mucosal thickening is present within the right maxillary sinus. IMPRESSION: Foci of soft tissue thickening, air in fluid are noted surrounding the posterior most right upper tooth suggestive of infection or inflammation. While there is no discretely defined enhancing fluid collection, overall appearance is suggestive of phlegmon/developing abscess. It is noted that air in soft tissue prominence due track anteriorly along the soft tissues extending to the anterior as well as anterior left aspect of the maxilla. Lytic focus within the anterior maxilla as above. While this could be related to a chronic focus of infection, etiology such as odontogenic/nonodontogenic tumors should be considered. Dictated by: Sangeetha Franco M.D. on 10/25/2021 at 13:51 Approved by: Sangeetha Franco M.D. on 10/25/2021 at 14:11
[2021-10-25 13:15] LABS: Procalcitonin 0.05 ng/mL (<0.5)
[2021-10-25] MEDS: KETOROLAC 30 MG/ML VIAL 15 MG IV (13:23)
[2021-10-25] MEDS: CLINDAMYCIN 900 MG/50 ML PIGGYBACK 50 MG IV (13:24)
== END 2021-10-25 16:41 | disposition home or self-care (01) ==
PROVIDERS: Emergency Provider Emergency Medicine; Family Provider Family Medicine; PCP Student in an Organized Health Care Education/Training Program
DX: K04.7 Periapical abscess without sinus (principal)
CPT/HCPCS: 36415; 70491; 80053; 83605; 83690; 84145; 85025; 87040; 96365; 96375; 99284; J1885

== ENCOUNTER 2022-11-12 00:32 | Emergency (ER) | payer OTHER, SELFPAY ==
[2022-11-12 00:36] VITALS: BP 161/70; PULSE 64; RESP 18; TEMP 36.6; O2SAT 98; BMI 19.3
[2022-11-12] MEDS: ONDANSETRON 4 MG/2 ML INJ IV (00:53)
[2022-11-12 01:03] LABS: Add Manual Diff / Slide Review NO; Basophils Absolute Auto 100 /uL (0-100); Basophils Percent Auto 0.5 % (0-2); Eosinophils Absolute Auto 100 /uL (0-450); Eosinophils Percent Auto 0.4 % (2-4); Hematocrit 44.7 % (41-53); Hemoglobin 15.1 g/dL (13.5-17.5); Lymphocytes Absolute Auto 1300 /uL (1100-4500); Mean Corpuscular HGB Conc 33.9 % (30-36); Mean Corpuscular Hemoglobin 31.8 PG (26-34); Mean Corpuscular Volume 93.8 fL (80-100); Monocytes Absolute Auto 1300 /uL (0-900); Monocytes Percent Auto 7.9 % (3-14); Neutrophils Absolute Auto 13600 /uL (1500-7000); Neutrophils Percent Auto 83.2 % (50-75); Platelet Count 292 X10^3/uL (150-400); Red Blood Cell Count 4.77 X10^6/uL (4.5-5.9); Red Cell Distribution Width 13.7 % (11.6-14.8); White Blood Cell Count 16.4 X10^3/uL (4.5-11.0)
[2022-11-12 01:12] LABS: Albumin 4.7 g/dL (3.5-5.0); Albumin Globulin Ratio 1.4 (1.0-2.8); Alkaline Phosphatase 51 U/L (38-126); Aspartate Aminotransferase 38 IU/L (17-59); BUN Creatinine Ratio 26.5 (6-22); Bilirubin Total 0.8 mg/dL (0.2-1.3); Blood Urea Nitrogen 18 mg/dL (9-20); Calcium 9.5 mg/dL (8.4-10.2); Carbon Dioxide 28 mmol/L (22-32); Chloride 98 mmol/L (98-107); Estimated Glomerular Filt Rate > 60 mL/min (>60); Globulin 3.3 g/dL (1.7-4.1); Glucose 196 mg/dL (70-100); HEMOLYSIS < 15 (0-50); Lipase 32 U/L (23-300); Potassium 3.8 mmol/L (3.4-5.1); Sodium 138 mmol/L (137-145)
[2022-11-12 01:15] LABS: Amorphous Sediment Urine 3+; Bacteria Urine Occasional (0-1); Culture Indicated Urine Cult Not Indicated; Mucus Urine 2+ (Negative); RBC Urine 0-1/HPF (0-5/HPF); Squamous Epithelial Cell Urine 0-1 /HPF (0-5/HPF); WBC Urine None Seen (0-5/HPF)
--- NOTE | 2022-11-12 01:17 | DI.CT.S_ITS ---
PROCEDURE: CT ABDOMEN PELVIS W CON INDICATIONS: generalized abd pain and vomiting TECHNIQUE: After the administration of IV contrast, axial sections were acquired from the lung bases to the pubic symphysis. Coronal and sagittal reformats were performed. For radiation dose reduction, the following was used: automated exposure control, adjustment of mA and/or kV according to patient size. COMPARISON: None. FINDINGS: Image quality: Excellent. Lung bases: Unremarkable. Heart: Heart is normal in size. ABDOMEN: Liver: No mass lesion. Gallbladder: Within normal limits without calcified gallstones. Biliary ducts: No biliary ductal dilatation. Pancreas: Unremarkable. Spleen: Normal in size. Adrenal Glands: No adrenal nodules. Kidneys and Ureters: No hydronephrosis. Stomach and Bowel: Stomach, small bowel loops, and colon are normal in caliber and wall thickness. The appendix is not discretely well visualized but there are no pericecal inflammatory changes to suggest appendicitis. Peritoneum: No abnormal intraperitoneal fluid. No free air. Ventral Wall: No hernia. Abdominal Nodes: No retroperitoneal or mesenteric adenopathy by size criteria. Vessels: Aorta and inferior vena cava are normal in size. PELVIS: Pelvic Organs: Unremarkable. Bladder: Unremarkable. Pelvic Nodes: No enlarged lymph nodes. Miscellaneous: No inguinal hernias are seen. Bones: Visualized osseous structures demonstrate no suspicious focal lesions. IMPRESSION: 1. No definite acute intra-abdominal abnormality. Specifically, no evidence of bowel obstruction. Dictated by: Adis Magana M.D. on 11/12/2022 at 2:08 Approved by: Adis Magana M.D. on 11/12/2022 at 2:14
--- NOTE | 2022-11-12 01:17 | ED.GENADULT ---
HPI - General Adult General Chief complaint: Abdominal Pain Stated complaint: vomiting Time Seen by Provider: 11/12/22 00:53 Source: patient Mode of arrival: Ambulatory History of Present Illness HPI narrative: Patient is a 41-year-old male who is here for evaluation of nausea and vomiting that has been going on since he woke up this morning. He is also having abdominal pain. No diarrhea. No urinary symptoms. Has tried to drink throughout the day to include Pedialyte but has been unable to do so. He is also having abdominal pain that is not changed by any of the vomiting. He does have known hernias around his umbilicus. No fevers. No travel. Related Data Previous Rx's Medication Instructions Recorded clindamycin HCl 300 mg capsule 300 mg PO QID #40 caps 10/25/21 Allergies Allergy/AdvReac Type Severity Reaction Status Date / Time No Known Drug Allergies Allergy Verified 11/12/22 00:40 Review of Systems Constitutional Constitutional: Reports system reviewed and no additional complaints, except as documented Gastrointestinal Gastrointestinal: Reports system reviewed and no additional complaints, except as documented Genitourinary Genitourinary: Reports system reviewed and no additional complaints, except as documented Integumentary/Breasts Skin/Breast: Reports system reviewed and no additional complaints, except as documented Patient History Medical History Ankle pain (~2016) Dental caries Fracture (~2016) Hearing loss Hiatal hernia (~2008) Shoulder pain (~2019) Vision disorder Surgical History Anesthesia History of endoscopy (~2007) History of surgery (~07/2016) Family History Father Cancer Mental health problem Grandfather Cancer Grandfather Cancer Social History Smoking Status: Current every day smoker Smoking Status: Current every day smoker alcohol intake frequency: holidays/special occasions only Substance Use Type: marijuana Exam Initial Vital Signs Initial Vital Signs: Vital Signs Temperature 97.8 F 11/12/22 00:36 Pulse Rate 64 11/12/22 00:36 Respiratory Rate 18 11/12/22 00:36 Blood Pressure 161/70 H 11/12/22 00:36 Pulse Oximetry 98 11/12/22 00:36 Oxygen Delivery Method Room Air 11/12/22 00:36 Const General: cooperative, comfortable and No ill appearing Resp Effort & Inspection: normal respiratory effort Cardio Rate: regular rate GI Inspection: normal to inspection and non-distended Palpation: soft, No firm, No guarding and tender Skin General: no rashes or lesions noted Course Orders Ordered: ED Orders 11/12/22 00:48 Urine Microscopic Stat 11/12/22 00:50 Complete Blood Count AUTO DIFF Stat Comprehensive Metabolic Panel Stat Lipase Stat 11/12/22 01:17 CT abdomen pelvis w con Stat Ondansetron HCl (Ondansetron 4 Mg Odt) 4 mg PO NOW PRN PRN Reason: Nausea And Vomiting Ondansetron HCl (Ondansetron 4 Mg/2 Ml Inj) 4 mg IV NOW PRN PRN Reason: Nausea And Vomiting Last Admin: 11/12/22 00:53 Dose: 4 mg Documented By: AP Discontinued Medications Ondansetron HCl (Ondansetron 4 Mg Odt Prepack) 1 bottle MISC SEEINSTR ONE Stop: 11/12/22 02:59 Vital Signs Vital signs: Vital Signs - 8 hr 11/12/22 00:36 Temperature 97.8 F Pulse Rate 64 Respiratory Rate 18 Blood Pressure 161/70 H Pulse Oximetry 98 Oxygen Delivery Method Room Air Medical Decision Making Lab Data Lab results reviewed: Yes I reviewed the patient's lab results. 11/12/22 00:50 11/12/22 00:50 Labs: Lab Results 11/12/22 11/12/22 11/12/22 Range/Units 00:48 00:50 00:50 WBC 16.4 H (4.5-11.0) X10^3/uL RBC 4.77 (4.5-5.9) X10^6/uL Hgb 15.1 (13.5-17.5) g/dL Hct 44.7 (41-53) % MCV 93.8 (80-100) fL MCH 31.8 (26-34) PG MCHC 33.9 (30-36) % RDW 13.7 (11.6-14.8) % Plt Count 292 (150-400) X10^3/uL Neut % (Auto) 83.2 H (50-75) % Lymph % (Auto) 8.0 L (25-40) % [place] % (Auto) 7.9 (3-14) % Eos % (Auto) 0.4 L (2-4) % Baso % (Auto) 0.5 (0-2) % Neut # (Auto) 62181 H (0413-4440) /uL Lymph # (Auto) 1300 (7101-0098) /uL [place] # (Auto) 1300 H (0-900) /uL Eos # (Auto) 100 (0-450) /uL Baso # (Auto) 100 (0-100) /uL Sodium 138 (137-145) mmol/L Potassium 3.8 (3.4-5.1) mmol/L Chloride 98 (98-107) mmol/L Carbon Dioxide 28 (22-32) mmol/L BUN 18 (9-20) mg/dL Creatinine 0.68 (0.66-1.25) mg/dL Estimated GFR > 60 (>60) mL/min BUN/Creatinine Ratio 26.5 H (6-22) Glucose 196 H (70-100) mg/dL Calcium 9.5 (8.4-10.2) mg/dL Total Bilirubin 0.8 (0.2-1.3) mg/dL AST 38 (17-59) IU/L ALT 49 (<50) IU/L Alkaline Phosphatase 51 (38-126) U/L Total Protein 8.0 (6.3-8.2) g/dL Albumin 4.7 (3.5-5.0) g/dL Globulin 3.3 (1.7-4.1) g/dL Albumin/Globulin Ratio 1.4 (1.0-2.8) Lipase 32 (23-300) U/L Urine RBC 0-1/hpf (0-5/HPF) Urine WBC None seen (0-5/HPF) Ur Squamous Epith Cells 0-1 /hpf (0-5/HPF) Amorphous Sediment 3+ Urine Bacteria Occasional (0-1) (None) Urine Mucus 2+ H (Negative) Ur Culture Indicated? Cult not indicated Urine Dip Bedside Urine Glucose Negative Bedside Urine Bilirubin - Negative Bedside Urine Ketone +/- 5 Urine Specific [place] 1.015 Bedside Urine Occult Blood - Negative Bedside Urine pH 7 Bedside Urine Protein + 30 Bedside Urine Urobilinogen - Negative Bedside Urine Nitrite - Negative Bedside Urine Leukocytes - Negative Esterase Point of care testing: Urine Dip Bedside Urine Glucose Negative Bedside Urine Bilirubin - Negative Bedside Urine Ketone +/- 5 Urine Specific [place] 1.015 Bedside Urine Occult Blood - Negative Bedside Urine pH 7 Bedside Urine Protein + 30 Bedside Urine Urobilinogen - Negative Bedside Urine Nitrite - Negative Bedside Urine Leukocytes - Negative Esterase Imaging Data CT scan - abdomen/pelvis: Radiologist's Impression: ROCEDURE:? CT ABDOMEN PELVIS W CON ? INDICATIONS:? generalized abd pain and vomiting ? TECHNIQUE:? After the administration of IV contrast, axial sections were acquired from the lung bases to the pubic symphysis.? Coronal and sagittal reformats were performed.? For radiation dose reduction, the following was used:? automated exposure control, adjustment of mA and/or kV according to patient size. ? COMPARISON:? None. ? FINDINGS:? Image quality:? Excellent.? ? Lung bases:? Unremarkable.? ? Heart:? Heart is normal in size. ? ? ABDOMEN: Liver:? No mass lesion. Gallbladder:? Within normal limits without calcified gallstones.? ? Biliary ducts:? No biliary ductal dilatation.? ? Pancreas:? Unremarkable.? ? Spleen:? Normal in size.? ? Adrenal Glands:? No adrenal nodules.? ? Kidneys and Ureters:? No hydronephrosis.? ? ? Stomach and Bowel:? Stomach, small bowel loops, and colon are normal in caliber and wall thickness.? The appendix is not discretely well visualized but there are no pericecal inflammatory changes to suggest appendicitis.? Peritoneum:? No abnormal intraperitoneal fluid.? No free air.? ? Ventral Wall: ? No hernia.? Abdominal Nodes:? No retroperitoneal or mesenteric adenopathy by size criteria.? Vessels:? Aorta and inferior vena cava are normal in size.? ? PELVIS: Pelvic Organs:? Unremarkable.? ? Bladder:? Unremarkable.? ? Pelvic Nodes: No enlarged lymph nodes.? Miscellaneous: No inguinal hernias are seen. ? ? ? Bones:? Visualized osseous structures demonstrate no suspicious focal lesions. ? IMPRESSION:? ? 1. No definite acute intra-abdominal abnormality.? Specifically, no evidence of bowel obstruction.? MDM Narrative Medical decision making narrative: No hernias are felt on the exam. The CT scan does not show any acute pathology. After Zofran and fluids patient states he was feeling better and was able to tolerate oral intake. No further workup required here in the emergency department. Will discharge home with a prescription for Zofran. He was given return precautions. He expressed understanding and agreement. Discharge Plan Departure Patient Disposition: Home Clinical Impression: Nausea and vomiting, Abdominal pain Instructions: DI for Abdominal Pain-Adult, Nausea and Vomiting-Adult Activity Restrictions/Additional Instructions: Use the nausea medication as needed. Be sure that you were increasing your fluid intake by drinking small amounts more frequently. Return to the emergency department for new or worsening symptoms. Prescriptions: No Action clindamycin HCl 300 mg capsule 300 mg PO QID Qty: 40 0RF Referrals: Domingo Constantino MD [Primary Care Provider] - Stand Alone Forms: Patient Portal/API
[2022-11-12 01:20] LABS: Alanine Aminotransferase 49 IU/L (<50)
[2022-11-12 03:00] VITALS: BP 140/70; PULSE 76; RESP 18; O2SAT 98
[2022-11-12] MEDS: ONDANSETRON 4 MG ODT PREPACK 1 BOTTLE MISC (03:07)
== END 2022-11-12 03:05 | disposition home or self-care (01) ==
PROVIDERS: Emergency Provider Emergency Medicine; Family Provider Family Medicine; PCP Student in an Organized Health Care Education/Training Program
DX: R10.84 Generalized abdominal pain (principal); R11.2 Nausea with vomiting, unspecified
CPT/HCPCS: 36415; 74177; 80053; 81003; 81015; 83690; 85025; 96374; 99284; J2405; Q9967

== ENCOUNTER 2022-12-03 13:32 | Emergency (ER) | payer OTHER, SELFPAY ==
[2022-12-03 13:36] VITALS: BP 133/71; PULSE 84; RESP 16; TEMP 36.8; O2SAT 97; BMI 19.3
--- NOTE | 2022-12-03 13:59 | ED_ITS ---
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 He has a laceration to the right 3rd digit, does not remember when his last tetanus vaccination was. States that the bleeding stopped after he applied a Band-Aid and is here because he needs to be. Related Data Previous Rx's Medication Instructions Recorded clindamycin HCl 300 mg capsule 300 mg PO QID #40 caps 10/25/21 Allergies Allergy/AdvReac Type Severity Reaction Status Date / Time No Known Drug Allergies Allergy Verified 11/12/22 00:40 Review of Systems <LIO Zaidi - Last Filed: 12/03/22 14:44> Review of Systems ROS Unobtainable: All systems reviewed & are unremarkable except as noted in HPI and below Patient History <LIO Zaidi - Last Filed: 12/03/22 14:44> Medical History Ankle pain (~2016) Dental caries Fracture (~2016) Hearing loss Hiatal hernia (~2008) Shoulder pain (~2019) Vision disorder Surgical History Anesthesia History of endoscopy (~2007) History of surgery (~07/2016) Family History Father Cancer Mental health problem Grandfather Cancer Grandfather Cancer Social History Smoking Status: Current every day smoker Smoking Status: Current every day smoker alcohol intake frequency: holidays/special occasions only Substance Use Type: marijuana Exam <LIO Zaidi - Last Filed: 12/03/22 14:44> Narrative Exam Narrative: MSK/SKIN: Initial Vital Signs Initial Vital Signs: Vital Signs Temperature 98.3 F 12/03/22 13:36 Pulse Rate 84 12/03/22 13:36 Respiratory Rate 16 12/03/22 13:36 Blood Pressure 133/71 12/03/22 13:36 Pulse Oximetry 97 12/03/22 13:36 Oxygen Delivery Method Room Air 12/03/22 13:36 <Bebo Hernandez DO - Last Filed: 12/04/22 06:32> Initial Vital Signs Initial Vital Signs: Vital Signs Temperature 98.3 F 12/03/22 13:36 Pulse Rate 84 12/03/22 13:36 Respiratory Rate 16 12/03/22 13:36 Blood Pressure 133/71 12/03/22 13:36 Pulse Oximetry 97 12/03/22 13:36 Oxygen Delivery Method Room Air 12/03/22 13:36 Procedures <LIO Zaidi - Last Filed: 12/03/22 14:44> Laceration Repair Laceration 1: Site: hand Side (If applicable): right Size (cm): 1 Description: linear and flap Depth: simple, single layer Local Anesthetic: lidocaine 1% Amount of anesthesia used (mL): 1 Pre-repair: wound explored, irrigated extensively and deep structures intact Skin layer closed with: nylon Skin layer suture size: 5-0 Number of sutures: 2 Technique: simple, interrupted Course <LIO Zaidi - Last Filed: 12/03/22 14:44> Orders Ordered: Discontinued Medications Diphtheria/Tetanus/Acell Pertussis (Tet,Diph,Pertuss(Acell),Vac/Pf 0.5 Ml Syringe) 0.5 ml IM .ONCE ONE Stop: 12/03/22 13:46 Last Admin: 12/03/22 14:06 Dose: 0.5 ml Documented By: RLS Vital Signs Vital signs: Vital Signs - 8 hr 12/03/22 13:36 Temperature 98.3 F Pulse Rate 84 Respiratory Rate 16 Blood Pressure 133/71 Pulse Oximetry 97 Oxygen Delivery Method Room Air <Bebo Hernandez DO - Last Filed: 12/04/22 06:32> Orders Ordered: Discontinued Medications Diphtheria/Tetanus/Acell Pertussis (Tet,Diph,Pertuss(Acell),Vac/Pf 0.5 Ml Syringe) 0.5 ml IM .ONCE ONE Stop: 12/03/22 13:46 Last Admin: 12/03/22 14:06 Dose: 0.5 ml Documented By: RACHEL Vital Signs Vital signs: Vital Signs - 8 hr 12/03/22 13:36 Temperature 98.3 F Pulse Rate 84 Respiratory Rate 16 Blood Pressure 133/71 Pulse Oximetry 97 Oxygen Delivery Method Room Air MDM - Skin/Abscess/Foreign Bdy <Ethel Alcantara, ORDNANCE KEEPER - Last Filed: 12/03/22 14:44> MDM Narrative Medical decision making narrative: Chief Complaint: Laceration to 3rd digit on right hand Multiple etiologies for patient's complaint considered including, but not limited to: Skin laceration, foreign body I have independently reviewed the patient's vital signs and nursing notes as well as prior records if available. Plan: Patient's tetanus was updated today as he did not remember when his last 1 was, wound was thoroughly cleaned and irrigated with normal saline, laceration only through dermis, this was suture repaired with 2 nylon sutures, hemostatic afterwards, wound was covered with a Band-Aid encouraged patient to keep it clean and have his sutures removed in 7-10 days. Wound was a clean laceration, he did not injure structures deeper to this, has full mobility, brisk cap refill, [id number] Social considerations that may affect disposition: none Questions are addressed and there is agreement with the plan and for follow-up. I consulted with the ED attending physician Dr. Hernandez as needed for higher level of care considerations and they were available for discussion and recommendations regarding plan of care and diagnostic testing. Patient is oralia ropriate for outpatient management. Discharge Plan Departure Patient Disposition: Home Clinical Impression: Work related injury Finger laceration Qualifiers: Encounter type: initial encounter Finger: middle finger Damage to nail status: without damage Foreign body presence: without foreign body Laterality: right Qualified Code(s): S61.212A - Laceration without foreign body of right middle finger without damage to nail, initial encounter Instructions: DI for Laceration Repair -- Finger Activity Restrictions/Additional Instructions: *You have been diagnosed with a finger laceration required 2 sutures. Please take your sutures out in 7-10 days when the wound is fully healed, keep it covered with a Band-Aid to prevent it from getting dirty or infected. Apply topical antibiotic ointment if you can, if you notice redness or streaking up your finger, please come back to emergency department for evaluation of inf ection. Your tetanus is up-to-date today, you do not need another 1 for 10 years. [id number] *What to do: *Please continue to take your regular medications as directed. [ ] New medication prescriptions sent to your pharmacy: [ ] [ ] New medication written as a paper prescription [ ] No new medications given *Please call and schedule follow up with your primary care provider in 2-3 days, at least for an update. Let them know you were seen in the Emergency Department for the above problem. We will electronically transmit a record of today's note if your PCP or specialist is in our system. *If you do not have a primary care provider please contact [phone] to establish care with one of the [facility] primary care providers. *Return to the Emergency Department for worsening symptoms, inability to keep liquids down, fever greater than 101F, chills, or other concerning symptom. Prescriptions: No Action clindamycin HCl 300 mg capsule 300 mg PO QID Qty: 40 0RF Referrals: Domingo Constantino MD [Primary Care Provider] - Stand Alone Forms: Patient Portal/API <Bebo Hernandez DO - Last Filed: 12/04/22 06:32> [facility]ign [facility] Att[facility]: I was immediately available in the department for consultation. This documentation has been reviewed and I agree with assessment and plan. Supervised by Bebo Hernandez DO
[2022-12-03] MEDS: TET,DIPH,PERTUSS(ACELL),VAC/PF 0.5 ML SYRINGE IM (14:06)
== END 2022-12-03 14:26 | disposition home or self-care (01) ==
PROVIDERS: Emergency Provider Nurse Practitioner Critical Care Medicine; Family Provider Family Medicine; PCP Student in an Organized Health Care Education/Training Program
DX: S61.212A Laceration without foreign body of right middle finger without damage to nail, initial encounter (principal); X58.XXXA Exposure to other specified factors, initial encounter; Z23 Encounter for immunization; Y99.0 Civilian activity done for income or pay
CPT/HCPCS: 12001; 90471; 99283; 90715

== ENCOUNTER 2023-01-02 11:32 | Emergency (ER) | payer OTHER, SELFPAY ==
[2023-01-02 11:35] VITALS: BP 139/86; PULSE 86; RESP 14; TEMP 36.9; O2SAT 98; BMI 19.9
--- NOTE | 2023-01-02 11:39 | DI.RAD.S_ITS ---
PROCEDURE: XR WRIST LT MIN 3V INDICATIONS: fall left hand/wrist and left knee pain TECHNIQUE: 4 views of the wrist were acquired. COMPARISON: None. FINDINGS: Bones: No fractures or dislocations. No suspicious bony lesions. Scaphoid view: Scaphoid appears intact. There is a 0.7 cm lucency in the distal pole of scaphoid, probably a bone cyst. Soft tissues: No suspicious soft tissue calcifications. IMPRESSION: 1. No acute osseous abnormality. 2. A 0.7 cm lucency in the distal pole of scaphoid. Dictated by: Los Watkins M.D. on 01/02/2023 at 12:28 Approved by: Los Watkins M.D. on 01/02/2023 at 12:30
--- NOTE | 2023-01-02 11:39 | DI.RAD.S_ITS ---
PROCEDURE: XR KNEE LT 3V INDICATIONS: fall left hand/wrist and left knee pain TECHNIQUE: 3 views of the knee were acquired. COMPARISON: None. FINDINGS: Bones: No acute fractures or dislocations. Old healed proximal fibular shaft fracture. Partial visualization of intramedullary riaz. Soft tissues: No joint effusion. No suspicious soft tissue calcifications. Prepatellar soft tissue swelling. IMPRESSION: No acute osseous abnormality. Dictated by: Los Watkins M.D. on 01/02/2023 at 12:26 Approved by: Los Watkins M.D. on 01/02/2023 at 12:28
--- NOTE | 2023-01-02 11:39 | DI.RAD.S_ITS ---
PROCEDURE: XR HAND LT MIN 3V INDICATIONS: fall left hand/wrist and left knee pain TECHNIQUE: 3 views of the hand(s) acquired. COMPARISON: [facility], CR, XR WRIST LT MIN 3V, 01/02/2023, 12:04. FINDINGS: Bones: No fractures or dislocations. Carpal bones are normally aligned. No suspicious bony lesions. Mixed lucent and sclerotic appearance of the 3rd proximal phalanx. Soft tissues: No suspicious soft tissue calcifications. IMPRESSION: 1. No acute osseous abnormality. 2. Mixed lucent and sclerotic appearance of the 3rd proximal phalanx. The radiographic appearance suggests an enchondroma. Malignant neoplasm is felt less likely but not entirely excluded. Recommend correlation with focal symptom pain/tenderness and MRI with and without contrast for further evaluation. Dictated by: Los Watkins M.D. on 01/02/2023 at 12:30 Approved by: Los Watkins M.D. on 01/02/2023 at 12:32
--- NOTE | 2023-01-02 12:09 | ED.FALL ---
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 He landed on his left hand and reports pain along the 4th and 5th metacarpals and digits. He also reports pain on his left knee at an old surgical site where he has a screw that protrudes slightly. There is no broken skin or open fracture. He did not hit his head or lose consciousness. He is not taken any medication or tried any therapy for the pain. He reports pain 11/08. Related Data Previous Rx's Medication Instructions Recorded clindamycin HCl 300 mg capsule 300 mg PO QID #40 caps 10/25/21 Allergies Allergy/AdvReac Type Severity Reaction Status Date / Time No Known Drug Allergies Allergy Verified 01/02/23 11:35 Review of Systems <Anny Joseph PA-C - Last Filed: 01/02/23 14:06> Review of Systems ROS Unobtainable: All systems reviewed & are unremarkable except as noted in HPI and below Patient History <Anny Joseph PA-C - Last Filed: 01/02/23 14:06> Medical History Ankle pain (~2016) Dental caries Fracture (~2016) Hearing loss Hiatal hernia (~2008) Shoulder pain (~2019) Vision disorder Surgical History Anesthesia History of endoscopy (~2007) History of surgery (~07/2016) Family History Father Cancer Mental health problem Grandfather Cancer Grandfather Cancer Social History Smoking Status: Current every day smoker Smoking Status: Current every day smoker alcohol intake frequency: holidays/special occasions only Substance Use Type: marijuana Exam <Anny Joseph PA-C - Last Filed: 01/02/23 14:06> Narrative Exam Narrative: GENERAL: 42 year old patient appears stated age. Well-developed patient, in no distress. NEURO: AOx3. CARDIOVASCULAR: No distress EXTREMITIES: Mild edema of left 4th digit pain. Mild pain with palpation left 4th and 5th digits and metacarpals. Mild ecchymosis over left knee with full range of motion. No open wounds. BACK: Nontender without deformity or crepitance. No flank tenderness. Initial Vital Signs Initial Vital Signs: Vital Signs Temperature 98.4 F 01/02/23 11:35 Pulse Rate 86 01/02/23 11:35 Respiratory Rate 14 01/02/23 11:35 Blood Pressure 139/86 01/02/23 11:35 Pulse Oximetry 98 01/02/23 11:35 Oxygen Delivery Method Room Air 01/02/23 11:35 <Wood Spangler DO - Last Filed: 01/02/23 14:48> Initial Vital Signs Initial Vital Signs: Vital Signs Temperature 98.4 F 01/02/23 11:35 Pulse Rate 86 01/02/23 11:35 Respiratory Rate 14 01/02/23 11:35 Blood Pressure 139/86 01/02/23 11:35 Pulse Oximetry 98 01/02/23 11:35 Oxygen Delivery Method Room Air 01/02/23 11:35 Course <Anny Joseph PA-C - Last Filed: 01/02/23 14:06> Orders Ordered: ED Orders 01/02/23 11:39 XR hand LT min 3V Stat XR knee LT 3V Stat XR wrist LT min 3V Stat Vital Signs Vital signs: Vital Signs - 8 hr 01/02/23 11:35 01/02/23 13:16 Temperature 98.4 F 97.9 F Pulse Rate 86 70 Respiratory Rate 14 18 Blood Pressure 139/86 127/77 Pulse Oximetry 98 100 Oxygen Delivery Method Room Air <DO Pete Donovan Last Filed: 01/02/23 14:48> Orders Ordered: ED Orders 01/02/23 11:39 XR hand LT min 3V Stat XR knee LT 3V Stat XR wrist LT min 3V Stat Vital Signs Vital signs: Vital Signs - 8 hr 01/02/23 11:35 01/02/23 13:16 Temperature 98.4 F 97.9 F Pulse Rate 86 70 Respiratory Rate 14 18 Blood Pressure 139/86 127/77 Pulse Oximetry 98 100 Oxygen Delivery Method Room Air MDM - Fall <Anny Joseph PA-C - Last Filed: 01/02/23 14:06> Imaging Data Extremity x-ray #1: Radiologist's Impression: PROCEDURE:? XR WRIST LT MIN 3V ? INDICATIONS: fall left hand/wrist and left knee pain ? TECHNIQUE:? 4 views of the wrist were acquired.? ? COMPARISON:? None. ? FINDINGS:? ? Bones:? No fractures or dislocations.? No suspicious bony lesions.? ? Scaphoid view:? Scaphoid appears intact. There is a 0.7 cm lucency in the distal pole of scaphoid, probably a bone cyst. ? ? Soft tissues:? No suspicious soft tissue calcifications.? ? IMPRESSION:? ? 1. No acute osseous abnormality.? 2. A 0.7 cm lucency in the distal pole of scaphoid.? ? ? Dictated by: Los Watkins M.D. on 01/02/2023 at 12:28 ? ? Approved by: Los Watkins M.D. on 01/02/2023 at 12:30 ? PROCEDURE:? XR KNEE LT 3V ? INDICATIONS:? fall left hand/wrist and left knee pain ? TECHNIQUE:? 3 views of the knee were acquired.? ? COMPARISON:? None. ? FINDINGS:? ? Bones:? No acute fractures or dislocations.? Old healed proximal fibular shaft fracture.? Partial visualization of intramedullary riaz. ? Soft tissues:? No joint effusion.? No suspicious soft tissue calcifications.? Prepatellar soft tissue swelling. ? ? IMPRESSION:? No acute osseous abnormality. ? ? Dictated by: Los Watkins M.D. on 01/02/2023 at 12:26 ? ? Approved by: Los Watkins M.D. on 01/02/2023 at 12:28? PROCEDURE:? XR HAND LT MIN 3V ? INDICATIONS:? fall left hand/wrist and left knee pain ? TECHNIQUE:? 3 views of the hand(s) acquired.? ? COMPARISON:? [facility], , XR WRIST LT MIN 3V, 01/02/2023, 12:04. ? FINDINGS:? ? Bones:? No fractures or dislocations.? Carpal bones are normally aligned.? No suspicious bony lesions.? Mixed lucent and sclerotic appearance of the 3rd proximal phalanx. ? Soft tissues:? No suspicious soft tissue calcifications.? ? ? IMPRESSION:? ? 1. No acute osseous abnormality. 2. Mixed lucent and sclerotic appearance of the 3rd proximal phalanx.? The radiographic appearance suggests an enchondroma.? Malignant neoplasm is felt less likely but not entirely excluded.? Recommend correlation with focal symptom pain/tenderness and MRI with and without contrast for further evaluation. ? ? Dictated by: Los Watkins M.D. on 01/02/2023 at 12:30 ? ? Approved by: Los Watkins M.D. on 01/02/2023 at 12:32 ? MDM Narrative Medical decision making narrative: Multiple etiologies for patient's symptoms considered including, but not limited to: contusion, abrasion, fracture, dislocation. X-rays without acute bony abnormality, incidental finding of likely enchondroma in left 3rd digit noted. There is a 0.7 cm lucency in the distal pole of scaphoid, probably a bone cyst. Advised patient to follow up with Dr. Duarte at [facility] in 1-2 months to discuss if further imaging of enchondroma is indicated. Imaging reviewed: X-rays left hand, left wrist, left knee Patient offered pain medication in the ER to include Tylenol, ibuprofen, or additional medications but declines, stating he does not like to take medications and is okay. He does have an ice pack placed on his left hand. Patient's symptoms improved over duration of stay with above-stated therapies. Findings and discharge diagnosis discussed with patient/family followed by verbalization of understanding Return precautions discussed with patient/family whom verbalize understanding of diagnosis and plan L [employer] paperwork filled out and turned into ER accounts payables clerk. Discharge Plan Departure Patient Disposition: Home Clinical Impression: Contusion of hand including fingers, Knee contusion, Enchondroma of finger of left hand Instructions: How To Perform RICE (Rest, Ice, Compress, Elevate) Activity Restrictions/Additional Instructions: *You have been diagnosed with contusion of left hand and left knee. Please call [facility] and make a follow-up appointment with Dr. Duarte to follow up the incidental finding on hand x-ray today. *What to do: *Please continue to take your regular medications as directed. [ ] New medication prescriptions sent to your pharmacy: [ ] [ ] New medication written as a paper prescription [ ] No new medications given *Please follow up with your primary care provider in 2-3 days, call for an appointment. Let them know you were seen in the Emergency Department and that we ask that you be seen in follow up. We will electronically transmit a record of today's note if your PCP is in our system *If you do not have a primary care provider please contact the [facility] Resource line at [phone]. They will ask some questions about your medical history and help get you set up with a doctor in the community. *Return to Emergency Department if you should have any new, worsening or concerning symptoms, such as [fever greater than 101 F, shaking chills, worsening pain, persistent vomiting or other bothersome symptoms] Prescriptions: No Action clindamycin HCl 300 mg capsule 300 mg PO QID Qty: 40 0RF Referrals: [facility] [Provider Group] Domingo Constantino MD [Primary Care Provider] - Stand Alone Forms: Patient Portal/API <Wood Spangler, DO - Last Filed: 01/02/23 14:48> Cosign ED Attending Cosstephaniature Attestation: Dr Spangler Co-Sign Statement: I was available for consultation during this patient's emergency department visit. This chart is signed by myself for administrative purposes only. I did not have direct contact with this patient during this visit. They were seen independently by the APC.
[2023-01-02 13:16] VITALS: BP 127/77; PULSE 70; RESP 18; TEMP 36.6; O2SAT 100
== END 2023-01-02 13:18 | disposition home or self-care (01) ==
PROVIDERS: Emergency Provider Physician Assistant; Family Provider Family Medicine; PCP Student in an Organized Health Care Education/Training Program
DX: S60.222A Contusion of left hand, initial encounter (principal); S80.02XA Contusion of left knee, initial encounter; D16.12 Benign neoplasm of short bones of left upper limb; W18.30XA Fall on same level, unspecified, initial encounter; Y99.0 Civilian activity done for income or pay
CPT/HCPCS: 73110; 73130; 73562; 99281; 99283

== ENCOUNTER → 2023-01-15 | Outpatient (CLI) | payer OTHER, SELFPAY ==
--- NOTE | 2023-01-15 | DI.MRI.S_ITS ---
PROCEDURE: MR HAND LT WO/W CON INDICATIONS: neoplasm of uncertain behavior of bone/skin/soft tissue TECHNIQUE: Noncontrast coronal T1 spin echo and T2 fast spin echo with fat saturation, axial proton density fast spin echo and T2 fast spin echo with fat saturation, axial T1 spin echo with fat saturation, sagittal T1 spin echo and STIR through the hand and fingers. Post-contrast axial, coronal, and sagittal T1 spin echo through the hand and fingers. COMPARISON: [facility], CR, XR HAND LT MIN 3V, 01/02/2023, 12:04. FINDINGS: Image quality: Excellent. Bones: The bones are normally aligned, without marrow contusions or fractures. A circumscribed [id number] lesion is seen in the medullary canal of the 3rd proximal phalanx corresponding to the osseous lesions prior radiographs from 01/02/2023. Mildly heterogeneous internal signal is consistent with calcifications as seen on radiographs with probable chondroid matrix. There is thinning of the overlying cortex without pathologic fracture or extraosseous extension. No surrounding osseous edema or soft tissue edema is seen. Subchondral cystic changes and edema are seen in the wrist at the distal scaphoid as well as within the trapezoid and capitate. Mild degenerative changes at the 1st carpometacarpal joint. Soft tissues: No solid enhancing soft tissue mass. The visualized flexor and extensor tendons are intact. Visualized muscles demonstrate normal bulk and internal signal. No intramuscular masses identified. No ganglion cysts. IMPRESSION: 1. Nonaggressive osseous lesion in the 3rd proximal phalanx is most likely a benign enchondroma. The lesion fills the medullary canal with thinning of the overlying cortex, which may put the patient at increased risk for future pathologic fracture, although no signs of acute fracture identified. 2. Degenerative subchondral cystic changes and edema are seen at the triscaphe joint and capitate lunate joint. Mild degenerative changes at the 1st carpometacarpal joint. Approved by: Alan Arrieta M.D. on 01/15/2023 at 16:07
== END ==
LOC: MRI 08:47
PROVIDERS: Family Provider Family Medicine; PCP Pediatrics; Referring Provider Orthopaedic Surgery; Visit Provider Orthopaedic Surgery
DX: D49.2 Neoplasm of unspecified behavior of bone, soft tissue, and skin (principal)
CPT/HCPCS: 73220; A9579

== ENCOUNTER 2024-02-17 10:44 | Emergency (ER) | payer OTHER, SELFPAY ==
[2024-02-17] VITALS (9 sets, daily range): BP systolic 125–136; BP diastolic 64–89; PULSE 67–90; RESP 17–25; TEMP 36.9; O2SAT 98–100; BMI 19.3
[2024-02-17] MEDS: ALBUTEROL/IPRATROPIUM 3 ML AMPUL INH (11:18)
--- NOTE | 2024-02-17 11:23 | EKG_ITS ---
[address] [address] Test Date: 2024-02-17 Pat Name: Chinyere Amador Department: [facility] Room: Gender: Male Billing Machine Operator: FRANCES : 1980 Requested By: Order Number: [id number] Reading MD: Elver De Paz Measurements Intervals [place] Rate: 78 P: 74 MN: 132 QRS: 53 QRSD: 102 T: 48 QT: 382 QTc: 435 Interpretive Statements Normal sinus rhythm Incomplete right bundle branch block Electronically Signed On 02-18-2024 19:51:16 PDT by Elver De Paz
[2024-02-17 11:25] LABS: Add Manual Diff / Slide Review NO; Basophils Absolute Auto 100 /uL (0-100); Basophils Percent Auto 0.6 % (0-2); Eosinophils Absolute Auto 100 /uL (0-450); Eosinophils Percent Auto 0.6 % (2-4); Hematocrit 46.1 % (41-53); Lymphocytes Absolute Auto 3200 /uL (1100-4500); Lymphocytes Percent Auto 25.5 % (25-40); Mean Corpuscular HGB Conc 34.7 % (30-36); Mean Corpuscular Hemoglobin 31.9 PG (26-34); Mean Corpuscular Volume 92.1 fL (80-100); Monocytes Absolute Auto 1400 /uL (0-900); Monocytes Percent Auto 10.9 % (3-14); Neutrophils Absolute Auto 7800 /uL (1500-7000); Neutrophils Percent Auto 62.4 % (50-75); Platelet Count 323 X10^3/uL (150-400); Red Blood Cell Count 5.01 X10^6/uL (4.5-5.9); Red Cell Distribution Width 13.7 % (11.6-14.8); White Blood Cell Count 12.6 X10^3/uL (4.5-11.0)
[2024-02-17] MEDS: ONDANSETRON 4 MG/2 ML INJ IV (11:34)
[2024-02-17 11:40] LABS: Creatine Kinase 138 U/L (55-170)
--- NOTE | 2024-02-17 11:40 | ED.ABDPAIN ---
HPI - Abdominal Pain General Chief Complaint: Abdominal Pain Stated Complaint: vomitting, abd pain, weakness Time Seen by Provider: 02/17/24 11:35 Source: patient and family Mode of arrival: Ambulatory Limitations: no limitations History of Present Illness HPI narrative: 43-year-old male who presents with complaint of nausea and vomiting starting Thursday and persisting through the last few days he states any time he tries to drink liquid comes back up. He states has also had quite a bit of a cough. Patient states has epigastric pain does not radiate to his back or elsewhere. Denies fevers or chills. States he sometimes has some chest discomfort and shortness of breath which is frequent with a cough that is productive but has been smoking tobacco for 30 years about a pack daily and had exposure as a child as well. No bowel movements in the past 3 days. Patient states he has not been passing flatus. He has been belching a lot. States his abdomen is not distended. Does have a history of hernia states that does not seem to be distended or painful. States he has had similar issues once or twice a month every 1 or 2 months but usually last for a day and then resolve. Presents today because it has not improved. States no daily medications, does use tobacco about 15 cigarettes daily, had prior surgical repair of a fracture in his leg with riaz and screws. No known drug allergies. Thirty pack-year history of tobacco, no alcohol, no recreational drugs. Does not have a primary care physician. Related Data Previous Rx's Medication Instructions Recorded clindamycin HCl 300 mg capsule 300 mg PO QID #40 caps 10/25/21 albuterol sulfate 90 mcg/actuation 2 puff inhalation Q4-6H PRN 02/17/24 aerosol inhaler shortness of breath or wheezing #8.5 grams ondansetron 4 mg disintegrating 4 mg PO Q6H PRN nausea and 02/17/24 tablet vomiting #10 tabs Allergies Allergy/AdvReac Type Severity Reaction Status Date / Time No Known Drug Allergies Allergy Verified 01/02/23 11:35 Review of Systems Review of Systems ROS Unobtainable: All systems reviewed & are unremarkable except as noted in HPI and below Patient History Medical History Vision disorder Hearing loss Shoulder pain (~2019) Fracture (~2016) Ankle pain (~2016) Hiatal hernia (~2008) Dental caries Surgical History Anesthesia History of endoscopy (~2007) History of surgery (~07/2016) Family History Father Cancer Mental health problem Grandfather Cancer Grandfather Cancer Social History Smoking Status: Current every day smoker Smoking Status: Current every day smoker alcohol intake frequency: holidays/special occasions only Substance Use Type: marijuana Exam Narrative Exam Narrative: GENERAL: Alert and oriented x three, male in mild distress HEENT: Head normocephalic, atraumatic, EOMI, pupils reactive, face symmetric, moist mucous membranes NECK: Supple, full range of motion CARDIOVASCULAR: Regular rate and rhythm without murmurs, rubs or gallops. RESPIRATORY: Breath sounds equal bilaterally although slightly diminished, no wheezes rales or rhonchi. No tachypnea accessory muscle use. Patient had a DuoNeb prior to evaluation he states his breathing feels much better. ABDOMEN: Soft, nontender. Nondistended. Normoactive bowel sounds all 4 quadrants. No guarding or rebound, rigidity, no mass : No CVA tenderness EXTREMITIES: Normal range of motion, no clubbing or edema. Neurovascularly intact NEUROLOGICAL: Cranial nerves II through XII grossly intact. Moving all extremities SKIN: Warm, dry, no petechiae, no rashes or lesions. Initial Vital Signs Initial Vital Signs: Vital Signs Pulse Rate 90 02/17/24 10:57 Blood Pressure 136/89 02/17/24 10:57 Pulse Oximetry 99 02/17/24 10:57 Course Orders Ordered: ED Orders 02/17/24 11:10 Complete Blood Count AUTO DIFF Stat Comprehensive Metabolic Panel Stat Lipase Stat Troponin & CK Cardiac Panel Stat 02/17/24 11:15 EKG-12 Lead Stat 02/17/24 11:52 CT abdomen pelvis w con Stat Chest [XR chest 1V] Stat Discontinued Medications Albuterol/Ipratropium (Albuterol/Ipratropium 3 Ml Ampul) 3 ml INH NOW ONE Stop: 02/17/24 11:17 Last Admin: 02/17/24 11:18 Dose: 3 ml Documented By: ANTWON Sodium Chloride (Normal Saline 0.9%) 1,000 mls @ 1,000 mls/hr IV BOLUS ONE Stop: 02/17/24 12:40 Last Infusion: 02/17/24 12:38 Dose: Infused Documented By: Admin: 02/17/24 11:44 Dose: 1,000 mls/hr Documented By: CHARLEEN Ondansetron HCl (Ondansetron 4 Mg/2 Ml Inj) 4 mg IV NOW PRN PRN Reason: Nausea And Vomiting Last Admin: 02/17/24 11:34 Dose: 4 mg Documented By: CHARLEEN Ondansetron HCl (Ondansetron 4 Mg Odt) 4 mg PO NOW PRN PRN Reason: Nausea And Vomiting Vital Signs Vital signs: Vital Signs - 8 hr 02/17/24 10:57 02/17/24 10:57 02/17/24 11:00 Temperature Pulse Rate 90 81 Respiratory Rate Blood Pressure 136/89 Pulse Oximetry 99 99 Oxygen Delivery Method 02/17/24 11:06 02/17/24 11:30 02/17/24 11:30 Temperature 98.4 F Pulse Rate 90 78 Respiratory Rate 20 25 H Blood Pressure 136/89 125/85 Pulse Oximetry 98 98 Oxygen Delivery Method Room Air 02/17/24 12:00 02/17/24 12:00 02/17/24 12:30 Temperature Pulse Rate 75 74 Respiratory Rate 17 Blood Pressure 125/64 Pulse Oximetry 98 100 Oxygen Delivery Method 02/17/24 13:00 02/17/24 13:30 02/17/24 13:54 Temperature Pulse Rate 67 67 69 Respiratory Rate 22 23 24 Blood Pressure Pulse Oximetry 100 99 99 Oxygen Delivery Method 02/17/24 13:54 Temperature Pulse Rate Respiratory Rate Blood Pressure 128/69 Pulse Oximetry Oxygen Delivery Method MDM - Abdominal Pain Lab Data 02/17/24 11:10 02/17/24 11:10 Labs: Lab Results 02/17/24 Range/Units 11:10 WBC 12.6 H (4.5-11.0) X10^3/uL RBC 5.01 (4.5-5.9) X10^6/uL Hgb 16.0 (13.5-17.5) g/dL Hct 46.1 (41-53) % MCV 92.1 (80-100) fL MCH 31.9 (26-34) PG MCHC 34.7 (30-36) % RDW 13.7 (11.6-14.8) % Plt Count 323 (150-400) X10^3/uL Neut % (Auto) 62.4 (50-75) % Lymph % (Auto) 25.5 (25-40) % [place] % (Auto) 10.9 (3-14) % Eos % (Auto) 0.6 L (2-4) % Baso % (Auto) 0.6 (0-2) % Neut # (Auto) 7800 H (1966-2984) /uL Lymph # (Auto) 3200 (2511-3034) /uL [place] # (Auto) 1400 H (0-900) /uL Eos # (Auto) 100 (0-450) /uL Baso # (Auto) 100 (0-100) /uL Sodium 134 L (137-145) mmol/L Potassium 3.6 (3.4-5.1) mmol/L Chloride 95 L (98-107) mmol/L Carbon Dioxide 29 (22-32) mmol/L BUN 14 (9-20) mg/dL Creatinine 0.65 L (0.66-1.25) mg/dL Estimated GFR > 60 (>60) mL/min BUN/Creatinine Ratio 21.5 (6-22) Glucose 123 H (70-100) mg/dL Calcium 9.6 (8.4-10.2) mg/dL Total Bilirubin 0.8 (0.2-1.3) mg/dL AST 29 (17-59) IU/L ALT 23 (<50) IU/L Alkaline Phosphatase 60 (38-126) U/L Total Creatine Kinase 138 (55-170) U/L Troponin I < 0.012 (0.01-0.034) ng/mL Total Protein 7.4 (6.3-8.2) g/dL Albumin 4.4 (3.5-5.0) g/dL Globulin 3.0 (1.7-4.1) g/dL Albumin/Globulin Ratio 1.5 (1.0-2.8) Lipase 41 (23-300) U/L Point of care testing: Urine Dip Bedside Urine Glucose Negative Bedside Urine Bilirubin - Negative Bedside Urine Ketone - Negative Urine Specific [place] 1.005 Bedside Urine Occult Blood - Negative Bedside Urine pH 6.5 Bedside Urine Protein - Negative Bedside Urine Urobilinogen - Negative Bedside Urine Nitrite - Negative Bedside Urine Leukocytes - Negative Esterase Imaging Data Chest x-ray: Radiologist's Impression: Chinyere Amador??43??M??1980 ? Allergy/Adv: No Known Drug Allergies (More??) Close Chest X-Ray (Signed) José Miguel Changderic - 02/17/24 Abdomen/Pelvis CT (Signed) BernardoElfego - 02/17/24 Hand MRI (Signed) Alan Arrieta - 01/15/23 Wrist X-Ray (Signed) Los Watkins - 01/02/23 Knee X-Ray (Signed) [place] Watkins - 01/02/23 Hand X-Ray (Signed) [place] Watkins - 01/02/23 Abdomen/Pelvis CT (Signed) Adis Magana - 11/12/[address] (Signed) Sangeetha Franco - 10/25/21 Scrotum Ultrasound (Signed) Reji Jorgensen - 05/06/21 Tibia/Fibula X-Ray (Signed) BernardoElfego - 04/16/21 Cervical Spine X-Ray (Signed) Kellie Desouza - 04/16/21 Chest X-Ray (Signed) Yee Samson - 03/14/21 Chest X-Ray (Signed) Keaton Reid - 03/14/21 Launch?Image [address] [address] XRay Report Signed Patient: Chinyere Amador MR#: [id number] : 1980 Acct:[id number] Age/Sex: 43 / M Date of Service: 02/17/24 Loc: ED Accession Number: [id number] Procedure: XR chest 1V Ordering Provider: Naomi Mcnamara D.O. PROCEDURE: XR CHEST 1V INDICATIONS: cough, better w/ neb, vomiting, hx tob 30years TECHNIQUE: One view of the chest was acquired. COMPARISON: [facility], , XR CHEST 1V, 03/14/2021, 16:55. FINDINGS: Surgical changes and devices: None. Lungs and pleura: Lungs are clear. No pleural effusions or pneumothorax. Mediastinum: Mediastinal contours appear normal. Heart size is normal. Bones and chest wall: No suspicious bony lesions. Overlying soft tissues appear unremarkable. IMPRESSION: No acute cardiopulmonary abnormality is seen. Dictated by: Elfego Chang M.D. on 02/17/2024 at 12:52 Approved by: Elfego Chang M.D. on 02/17/2024 at 12:53 CT scan - abdomen/pelvis: Radiologist's Impression: Chinyere Amador??43??M??1980 ? Allergy/Adv: No Known Drug Allergies (More??) Close Chest X-Ray (Signed) BernardoJosé MiguelElfego - 02/17/24 Abdomen/Pelvis CT (Signed) Elfego Chang - 02/17/24 Hand MRI (Signed) Alan Arrieta - 01/15/23 Wrist X-Ray (Signed) Los Watkins - 01/02/23 Knee X-Ray (Signed) Los Watkins - 01/02/23 Hand X-Ray (Signed) [place] Watkins - 01/02/23 Abdomen/Pelvis CT (Signed) Adis Magana - 11/12/[address] (Signed) Sangeetha Franco - 10/25/21 Scrotum Ultrasound (Signed) Reji Jorgensen - 05/06/21 Tibia/Fibula X-Ray (Signed) Elfego Chang - 04/16/21 Cervical Spine X-Ray (Signed) Kellie Desouza - 04/16/21 Chest X-Ray (Signed) Yee Samson - 03/14/21 Chest X-Ray (Signed) Keaton Reid - 03/14/21 [place] [address] CT Scan Report Signed Patient: Chinyere Amador MR#: [id number] : 1980 Acct:[id number] Age/Sex: 43 / M Date of Service: 02/17/24 Loc: ED Accession Number: [id number] Procedure: CT abdomen pelvis w con Ordering Provider: Naomi Mcnamara D.O. PROCEDURE: CT ABDOMEN PELVIS W CON INDICATIONS: vomiting x 3 days, no BM/flatus x 3, epigastric pain TECHNIQUE: After the administration of intravenous contrast, axial sections acquired from the lung bases to the pubic symphysis. Coronal and sagittal reformats were performed. For radiation dose reduction, the following was used: automated exposure control, adjustment of mA and/or kV according to patient size. COMPARISON: [facility], CT, CT ABDOMEN PELVIS W CON, 11/12/2022, 1:37. FINDINGS: Image quality: Diagnostic. Lower Chest: No significant findings. ABDOMEN: Liver: No solid mass. Gallbladder: No radiopaque gallstones or wall thickening. Biliary ducts: No biliary dilation. Pancreas: No ductal dilation. Spleen: Size is within normal limits. Adrenal Glands: No adrenal nodules. Kidneys and Ureters: No hydronephrosis. No solid mass. No complex renal cystic lesion which requires follow up. Stomach and Bowel: Normal colonic caliber, without significant wall thickening. Peritoneum: No abnormal intraperitoneal fluid. No free air. Ventral Wall: No significant ventral hernia. Abdominal Nodes: No retroperitoneal or mesenteric adenopathy by size criteria. Vessels: Aorta and inferior vena cava are normal in size. PELVIS: Pelvic Organs: Unremarkable. Bladder: No bladder wall thickening, accounting for underdistention. Pelvic Nodes: No enlarged lymph nodes. Miscellaneous: No inguinal hernias are seen. Bones: No aggressive osseous abnormality. IMPRESSION: No acute process. Dictated by: Elfego Chang M.D. on 02/17/2024 at 12:56 Approved by: Elfego Chang M.D. on 02/17/2024 at 12:59 ECG Data Attestation: I personally reviewed and interpreted this ECG as follows: Prior ECG tracings: not available for review Interpretation: Sinus rhythm incomplete right bundle-branch rate of 78 OH 132 QRS of 102 QTC of 435, no acute ST elevation or depression. No priors for comparison. MDM Narrative Medical decision making narrative: 43-year-old male complaint of epigastric abdominal pain nausea vomiting with no bowel movement or flatus for the past 3 days. Patient is not distended nontender concern for obstructive process. But he states he has had similar issues on and off almost every 1-2 months. Also has had quite a bit of coughing but likely has some component of emphysema was improved after DuoNeb. Has a 30 pack year history. EKG shows incomplete right bundle-branch Labs show white count of 12.6, hemoglobin of 16 platelets of 323. Chemistry shows sodium 134 potassium 3.6 chloride 95 CO2 of 29 BUN of 14 creatinine 0.65 glucose of 123 calcium is 9.6 LFTs are negative troponins less than 0.012 with a lipase of 41. Chest x-ray shows no acute change CT abdomen pelvis shows no acute change. Point of care urine was negative Patient received a L of fluids, Zofran 4 mg and 1 DuoNeb On recheck patient feels much better cough is improved. His nausea feels much better. Discussed with patient with his chronic and intermittent vomiting would recommend follow up with the EGD we will give contact. Cough feels improved with DuoNeb he has not actively wheezing here no other infectious changes so we will give a prescription for albuterol inhaler. Encouraged patient to stop smoking tobacco but also to establish primary care may need steroid inhaler ultimately maintenance therapy. Patient feels comfortable this plan we will give a short course of antinausea medication for home. Return precautions all questions answered. Discharge Plan Departure Patient Disposition: Home Clinical Impression: Reactive airway disease, Vomiting Instructions: Chronic Obstructive Pulmonary Disease, DI for Vomiting -- Adult Activity Restrictions/Additional Instructions: I would recommend that you follow up with primary care to establish. You likely developing some COPD or emphysema and may benefit from having a maintenance plan. For your lungs you can use the albuterol puffer 2 puffs with a spacer every 4-6 hours as needed. For your intermittent vomiting would recommend follow up for EGD or scope. Contacts included below can be through General surgery or Gastroenterology. A prescription was sent for the inhaler as well as some antinausea medication. You can take 1 tablet of antinausea medicine every 6 hours as needed. Prescription sent to [facility] in [place]. If you are having fevers new or worsening abdominal back or flank pain, persistent vomiting, lightheadedness or passing out, black or bloody stools, difficulty with breathing or not responding to albuterol please return for re-evaluation. Prescriptions: New ondansetron 4 mg tablet,disintegrating 4 mg PO Q6H PRN (Reason: nausea and vomiting) Qty: 10 0RF albuterol sulfate 90 mcg/actuation HFA aerosol inhaler 2 puff inhalation Q4-6H PRN (Reason: shortness of breath or wheezing) Qty: 8.5 0RF No Action clindamycin HCl 300 mg capsule 300 mg PO QID Qty: 40 0RF Referrals: Mathieu Villalpando MD [Physician] - Mathieu Gloria MD [Primary Care Provider] - Stand Alone Forms: Patient Portal/API
[2024-02-17 11:41] LABS: Alanine Aminotransferase 23 IU/L (<50); Albumin 4.4 g/dL (3.5-5.0); Albumin Globulin Ratio 1.5 (1.0-2.8); Alkaline Phosphatase 60 U/L (38-126); Aspartate Aminotransferase 29 IU/L (17-59); BUN Creatinine Ratio 21.5 (6-22); Bilirubin Total 0.8 mg/dL (0.2-1.3); Blood Urea Nitrogen 14 mg/dL (9-20); Calcium 9.6 mg/dL (8.4-10.2); Carbon Dioxide 29 mmol/L (22-32); Chloride 95 mmol/L (98-107); Estimated Glomerular Filt Rate > 60 mL/min (>60); Glucose 123 mg/dL (70-100); HEMOLYSIS 15 (0-50); Lipase 41 U/L (23-300); Potassium 3.6 mmol/L (3.4-5.1); Sodium 134 mmol/L (137-145); Total Protein 7.4 g/dL (6.3-8.2)
[2024-02-17] MEDS: SODIUM CHLORIDE 0.9% 1,000 ML 1000 ML IV (11:44)
[2024-02-17 11:52] LABS: Troponin I < 0.012 ng/mL (0.01-0.034)
--- NOTE | 2024-02-17 11:52 | DI.RAD.S_ITS ---
PROCEDURE: XR CHEST 1V INDICATIONS: cough, better w/ neb, vomiting, hx tob 30years TECHNIQUE: One view of the chest was acquired. COMPARISON: [facility], CR, XR CHEST 1V, 03/14/2021, 16:55. FINDINGS: Surgical changes and devices: None. Lungs and pleura: Lungs are clear. No pleural effusions or pneumothorax. Mediastinum: Mediastinal contours appear normal. Heart size is normal. Bones and chest wall: No suspicious bony lesions. Overlying soft tissues appear unremarkable. IMPRESSION: No acute cardiopulmonary abnormality is seen. Dictated by: Elfego Chang M.D. on 02/17/2024 at 12:52 Approved by: Elfego Chang M.D. on 02/17/2024 at 12:53
--- NOTE | 2024-02-17 11:52 | DI.CT.S_ITS ---
PROCEDURE: CT ABDOMEN PELVIS W CON INDICATIONS: vomiting x 3 days, no BM/flatus x 3, epigastric pain TECHNIQUE: After the administration of intravenous contrast, axial sections acquired from the lung bases to the pubic symphysis. Coronal and sagittal reformats were performed. For radiation dose reduction, the following was used: automated exposure control, adjustment of mA and/or kV according to patient size. COMPARISON: [facility], CT, CT ABDOMEN PELVIS W CON, 11/12/2022, 1:37. FINDINGS: Image quality: Diagnostic. Lower Chest: No significant findings. ABDOMEN: Liver: No solid mass. Gallbladder: No radiopaque gallstones or wall thickening. Biliary ducts: No biliary dilation. Pancreas: No ductal dilation. Spleen: Size is within normal limits. Adrenal Glands: No adrenal nodules. Kidneys and Ureters: No hydronephrosis. No solid mass. No complex renal cystic lesion which requires follow up. Stomach and Bowel: Normal colonic caliber, without significant wall thickening. Peritoneum: No abnormal intraperitoneal fluid. No free air. Ventral Wall: No significant ventral hernia. Abdominal Nodes: No retroperitoneal or mesenteric adenopathy by size criteria. Vessels: Aorta and inferior vena cava are normal in size. PELVIS: Pelvic Organs: Unremarkable. Bladder: No bladder wall thickening, accounting for underdistention. Pelvic Nodes: No enlarged lymph nodes. Miscellaneous: No inguinal hernias are seen. Bones: No aggressive osseous abnormality. IMPRESSION: No acute process. Dictated by: Elfego Chang M.D. on 02/17/2024 at 12:56 Approved by: Elfego Chang M.D. on 02/17/2024 at 12:59
== END 2024-02-17 13:59 | disposition home or self-care (01) ==
PROVIDERS: Emergency Provider Emergency Medicine; Family Provider Family Medicine; PCP Pediatrics
DX: J45.909 Unspecified asthma, uncomplicated (principal); R11.10 Vomiting, unspecified; R10.13 Epigastric pain; R07.9 Chest pain, unspecified; R06.02 Shortness of breath; I45.10 Unspecified right bundle-branch block
CPT/HCPCS: 36415; 71045; 74177; 80053; 81003; 82550; 83690; 84484; 85025; 93005; 96361; 96374; 99284; J2405; Q9967

== ENCOUNTER → 2024-03-29 12:47 | Outpatient (CLI) | payer OTHER, SELFPAY ==
[2024-03-29 14:38] LABS: Add Manual Diff / Slide Review NO; Basophils Absolute Auto 100 /uL (0-100); Basophils Percent Auto 0.6 % (0-2); Eosinophils Absolute Auto 100 /uL (0-450); Eosinophils Percent Auto 1.2 % (2-4); Hematocrit 40.2 % (41-53); Hemoglobin 13.7 g/dL (13.5-17.5); Lymphocytes Absolute Auto 3000 /uL (1100-4500); Lymphocytes Percent Auto 29.8 % (25-40); Mean Corpuscular HGB Conc 34.1 % (30-36); Mean Corpuscular Hemoglobin 31.8 PG (26-34); Mean Corpuscular Volume 93.3 fL (80-100); Monocytes Absolute Auto 1000 /uL (0-900); Monocytes Percent Auto 10.2 % (3-14); Neutrophils Absolute Auto 5900 /uL (1500-7000); Neutrophils Percent Auto 58.2 % (50-75); Platelet Count 307 X10^3/uL (150-400); Red Cell Distribution Width 13.2 % (11.6-14.8); White Blood Cell Count 10.1 X10^3/uL (4.5-11.0)
[2024-03-29 14:48] LABS: Hemoglobin A1C% w Est Avg Glu 5.6 % (4.0-6.0)
[2024-03-29 15:05] LABS: Alanine Aminotransferase 14 IU/L (<50); Albumin 4.1 g/dL (3.5-5.0); Albumin Globulin Ratio 1.8 (1.0-2.8); Alkaline Phosphatase 52 U/L (38-126); Aspartate Aminotransferase 24 IU/L (17-59); BUN Creatinine Ratio 13.2 (6-22); Bilirubin Total 0.4 mg/dL (0.2-1.3); Blood Urea Nitrogen 9 mg/dL (9-20); Calcium 9.1 mg/dL (8.4-10.2); Carbon Dioxide 26 mmol/L (22-32); Chloride 103 mmol/L (98-107); Cholesterol 149 mg/dL (140-199); Estimated Glomerular Filt Rate > 60 mL/min (>60); Globulin 2.3 g/dL (1.7-4.1); Glucose 101 mg/dL (70-100); HDL Cholesterol 44 mg/dL (40-60); HEMOLYSIS < 15 (0-50); LDL Cholesterol Calculated 86 mg/dL (<100); Potassium 3.8 mmol/L (3.4-5.1); Sodium 134 mmol/L (137-145); Total Protein 6.4 g/dL (6.3-8.2); Triglycerides 96 mg/dL (35-150)
== END ==
PROVIDERS: Family Provider Family Medicine; PCP Family Medicine; Referring Provider Family Medicine; Visit Provider Family Medicine
DX: R07.9 Chest pain, unspecified (principal); Z13.6 Encounter for screening for cardiovascular disorders; R73.9 Hyperglycemia, unspecified; E78.2 Mixed hyperlipidemia; R06.02 Shortness of breath
CPT/HCPCS: 36415; 80053; 80061; 83036; 85025

== ENCOUNTER → 2024-04-04 16:03 | Outpatient (CLI) | payer OTHER, SELFPAY | LOC: RESP 16:03 | PROVIDERS: Family Provider Family Medicine; PCP Family Medicine; Referring Provider Family Medicine; Visit Provider Family Medicine | DX: R06.02 Shortness of breath (principal); F17.210 Nicotine dependence, cigarettes, uncomplicated; R94.2 Abnormal results of pulmonary function studies; R07.9 Chest pain, unspecified | CPT/HCPCS: 94060; 94726; 94729 ==

== ENCOUNTER → 2024-05-04 07:04 | Outpatient (CLI) | payer OTHER, SELFPAY ==
--- NOTE | 2024-05-04 07:05 | DI.ECHO.S_ITS ---
[facility] : : [address] : : [place] : : [id number] : : Phone: [phone] Echocardiogram Report + + :Name: MAYRA CANTOR Study Date: 05/04/2024 Height: 70 in : :[facility] ReadingLocation: Weight: 140 lb : : Gender: Male BSA: 1.8 m2 : :: 1980 Age: 43 yrs BP: 117/80 mmHg: :Reason For Study: CHEST PAIN : :Ordering Physician: : :JERRY RODRIGUEZ Performed By: Sara Christopher : :Referring: JERRY RODRIGUEZ : + + Interpretation Summary 1) Normal left ventricular thickness, size, wall motion, and systolic function (EF 55-60%). 2) Normal right ventricular size and function. 3) No significant valvular abnormalities. 4) No prior Echo available for comparison. Procedure: A two-dimensional transthoracic echocardiogram with color flow and Doppler was performed. The study quality was technically adequate. There is no prior echocardiogram noted for this patient. The patient was in sinus rhythm with heart rates between 65-74 bpm during the exam. Left Ventricle: The left ventricle is normal in size and wall thickness. A false chord is noted (normal variant). The ejection fraction is estimated to be 55-60%. Left ventricular systolic function appears normal without focal wall motion abnormalities. Diastolic parameters suggest probable normal left ventricular diastolic function and normal filling pressures. Right Ventricle: The right ventricle is normal in size and function. Atria: The left atrial size is normal. Right atrial size is normal. There is no Doppler evidence for an interatrial shunt. The interatiral septum is thin and hypermobile. Mitral Valve: The mitral valve is normal in structure and function. There is trace mitral regurgitation. Aortic Valve: The aortic valve is trileaflet. The aortic valve opens well. There is no aortic valve stenosis. No aortic regurgitation is present. Tricuspid Valve: The tricuspid valve is normal in structure and function. There is mild tricuspid regurgitation. The right ventricular systolic pressure is estimated to be at least 19 mmHg based on an estimated right atrial pressure of 3 mm Hg. Pulmonic Valve: The pulmonic valve leaflets are thin and pliable; valve motion is normal. There is no pulmonic valvular regurgitation. Great Vessels: The aortic root is normal size. The ascending aorta could not be visualized. The aortic arch is normal in size. The IVC is of normal diameter and collapses greater than 50% with a sniff. This suggests a low right atrial pressure of 3 mm Hg. Pericardium/ Pleura There is no pericardial effusion. There is no pleural effusion. MMode/2D Measurements & Calculations LVIDd: 4.8 cm LVOT diam: 2.2 cm LVIDs: 3.2 cm Ao root diam: 3.2 cm FS: 33.2 % Ao Arch Diam (Prox Trans): 2.2 cm EPSS: 0.89 cm IVSd: 0.63 cm LVPWd: 0.79 cm LV rush. diameter/BSA (cm/m^2): 2.7 LV sys. diameter/BSA (cm/m^2): 1.8 LA A2 area: 15.0 cm2 RA long axis: 4.3 cm LA A4 area: 12.4 cm2 RA area: 16.1 cm2 LA length (vol): 4.1 cm RA vol: 51.1 ml LA vol: 38.6 ml RA : 28.5 ml/m2 LA vol index: 21.5 ml/m2 IVC diam: 1.9 cm RVD1 (basal): 3.8 cm RVD2 (mid): 3.2 cm TAPSE: 1.9 cm Doppler Measurements & Calculations Ao V2 max: 116.0 cm/sec LVOT Max Wojciech: 87.6 cm/sec Ao V2 mean: 80.4 cm/sec LV V1 max P.1 mmHg Ao max P.4 mmHg LV V1 VTI: 16.8 cm Ao mean P.9 mmHg DHARMESH(I,D): 2.6 cm2 Ao V2 VTI: 23.6 cm DHARMESH(V,D): 2.8 cm2 sev ratio: 0.71 DHARMESH indexed to BSA (cm^2/m^2): 1.5 MV E max wojciech: 71.4 cm/sec TR max wojciech: 198.9 cm/sec MV A max wojciech: 57.5 cm/sec TR max P.8 mmHg MV E/A: 1.2 PA V2 max: 81.1 cm/sec Med Peak E' Wojciech: 10.2 cm/sec PA V2 mean: 60.0 cm/sec E/E' med: 7.0 PA mean P.6 mmHg Lat Peak E' Wojciech: 13.7 cm/sec PA pr(Accel): 24.2 mmHg E/E' lat: 5.2 E/e' average: 6.1 MV dec time: 0.21 sec SV(LVOT): 62.2 ml Reading Physician:09:47 AM
== END ==
PROVIDERS: Family Provider Family Medicine; PCP Family Medicine; Referring Provider Family Medicine; Visit Provider Family Medicine
DX: R07.9 Chest pain, unspecified (principal); R06.02 Shortness of breath; I07.1 Rheumatic tricuspid insufficiency
CPT/HCPCS: 93306

== ENCOUNTER → 2024-05-27 | Outpatient (CLI) | payer OTHER, SELFPAY ==
--- NOTE | 2024-05-27 07:34 | DI.RAD.S_ITS ---
PROCEDURE: FL BARIUM SWALLOW INDICATIONS: Eval hiatal hernia COMPARISON: [facility], CT, CT ABDOMEN PELVIS W CON, 02/17/2024, 12:11. FINDINGS: Function: There is normal esophageal peristalsis. No elicited gastroesophageal reflux. There is normal transit of a calibrated barium tablet through the esophagus into the stomach. A small sliding-type hiatal hernia. Morphology: Air-contrast images demonstrate normal mucosal morphology. Single contrast views show no esophageal strictures, extrinsic mass effects, or diverticula. Limited images of the stomach demonstrate normal appearance. Rapid transit of contrast into the duodenum and proximal small bowel. Patient reports pain at the level of the umbilicus or over the distal stomach. IMPRESSION: 1. Small sliding-type hiatal hernia. 2. No esophageal dysmotility. No gastroesophageal reflux elicited. 3. Patient reports pain at the level of the umbilicus or over the distal stomach. Dictated by: Rebel Crisostomo M.D. on 05/27/2024 at 10:47 Approved by: Rebel Crisostomo M.D. on 05/27/2024 at 11:49
--- NOTE | 2024-05-27 17:47 | DI.NM.S_ITS ---
DATE OF SERVICE: 05/27/2024 PROCEDURE: Exercise treadmill stress test without imaging. ORDERING PROVIDER: Yarely Dang M.D. INDICATIONS: The patient is a 43-year-old male smoker with hyperlipidemia, exertional dyspnea, atypical chest discomfort with associated syncope. FINDINGS: 1. The patient was able to exercise for 12 minutes and 22 seconds on a standard [facility] protocol suggesting fair exercise capacity with an HUSAM of -4%, achieving 13.1 METS. 2. He had a normal heart rate and blood pressure response to exercise, achieving a maximum heart rate of 161 BPM (90% of his predicted maximum). 3. He had no chest discomfort or other anginal symptoms. 4. His resting ECG shows sinus rhythm with normal ST segments. With exercise, there are no significant ST-segment shifts or arrhythmias, although he had rare isolated PVCs in early recovery and PACs in a bigeminal pattern later in recovery that then resolved. There was no other complex ectopy. IMPRESSION: 1. Normal exercise treadmill stress test for ischemia. 2. Fair exercise capacity without angina. 3. Rare isolated PVCs in recovery with brief supraventricular bigeminy but no concerning arrhythmias. Hyacinth Amadorl - LAN/wu/AY doc#: [id number]/job#: [id number] dd: 05/27/2024 17:11:00 dt: 05/27/2024 17:28:00 DICTATING /COPIES TO: Ishmael Rust MD; Yarely Dang M.D. COPIES MNE: KENIA;
== END ==
LOC: NUCM 07:33
PROVIDERS: Family Provider Family Medicine; PCP Family Medicine; Referring Provider Surgery; Visit Provider Family Medicine
DX: R07.9 Chest pain, unspecified (principal); R06.02 Shortness of breath; K44.9 Diaphragmatic hernia without obstruction or gangrene
CPT/HCPCS: 74220; 93017

== ENCOUNTER 2025-02-17 10:44 | Emergency (ER) | payer OTHER, SELFPAY ==
[2025-02-17] VITALS (10 sets, daily range): BP systolic 114–163; BP diastolic 67–88; PULSE 60–73; RESP 13–24; TEMP 36.7; O2SAT 93–100; BMI 18.6
--- NOTE | 2025-02-17 11:17 | EKG_ITS ---
[address] [address] Test Date: 2025-02-17 Pat Name: Chinyere Amador Department: [facility] Room: Gender: Male [employer]: JODI : 1980 Requested By: Order Number: [id number] Reading MD: Ulysses Barney MD Measurements Intervals [place] Rate: 63 P: [place]: 144 QRS: 78 QRSD: 104 T: 63 QT: 418 QTc: 427 Interpretive Statements Sinus rhythm with marked sinus arrhythmia Incomplete right bundle branch block NO SIGNIFICANT CHANGE FROM PRIOR TRACING Electronically Signed On 02-17-2025 12:14:57 PDT by Ulysses Barney MD
[2025-02-17 12:27] LABS: Add Manual Diff / Slide Review NO; Hematocrit 42.7 % (41-53); Hemoglobin 14.6 g/dL (13.5-17.5); Lymphocytes Absolute Auto 1800 /uL (1100-4500); Mean Corpuscular HGB Conc 34.2 % (30-36); Mean Corpuscular Hemoglobin 31.7 PG (26-34); Mean Corpuscular Volume 92.6 fL (80-100); Platelet Count 304 X10^3/uL (150-400)
[2025-02-17] MEDS: ONDANSETRON 4 MG/2 ML INJ IV (12:42)
--- NOTE | 2025-02-17 12:42 | ED.ABDPAIN ---
HPI - Abdominal Pain General Chief Complaint: Abdominal Pain Stated Complaint: N/V chest and stomach pain x 3 days Time Seen by Provider: 02/17/25 11:13 Source: patient Mode of arrival: Ambulatory History of Present Illness HPI narrative: Patient is a healthy 44-year-old male presenting today with abdominal pain nausea vomiting chest pain. He admits to smoking marijuana daily he gets these episodes fairly regularly however this 1 seems to be ongoing for awhile. He reports some left-sided chest pain, no dizziness or lightheadedness. He denies any diarrhea no fever chills or sweats. He has not passed out. No sore throat. He does not want anything for pain but will take something for nausea. Related Data Previous Rx's ?Medication ?Instructions ?Recorded ondansetron 4 mg disintegrating 4 mg PO Q6H PRN nausea and 02/17/24 tablet vomiting #10 tabs albuterol sulfate 90 mcg/actuation 2 puff inhalation Q4-6H PRN 03/28/24 aerosol inhaler shortness of breath or wheezing #8.5 grams umeclidinium 62.5 mcg-vilanterol 1 inh inhalation DAILY #60 ea 03/28/24 25 mcg/actuation powdr for inhalation (Anoro Ellipta) ondansetron 4 mg disintegrating 4 mg PO Q6-8H PRN nausea and 02/17/25 tablet vomiting #10 tabs Allergies Allergy/AdvReac Type Severity Reaction Status Date / Time No Known Drug Allergies Allergy Verified 02/17/25 11:10 Patient History Medical History Vision disorder Hearing loss Shoulder pain (~2019) Fracture (~2016) Ankle pain (~2016) Hiatal hernia (~2008) Dental caries Surgical History Anesthesia History of endoscopy (~2007) History of surgery (~07/2016) Family History Father Cancer Mental health problem Grandfather Cancer Grandfather Cancer Social History marital status: household members: spouse lives independently: Yes occupational status: employed alcohol intake: current substance use type: marijuana Smoking Status: Current some day smoker alcohol intake frequency: holidays/special occasions only Exam Initial Vital Signs Initial Vital Signs: Vital Signs Temperature 98.1 F 02/17/25 11:00 Pulse Rate 73 02/17/25 11:00 Respiratory Rate 24 02/17/25 11:00 Blood Pressure 163/88 H 02/17/25 11:00 Pulse Oximetry 100 02/17/25 11:00 Oxygen Delivery Method Room Air 02/17/25 11:00 GENERAL: Alert well-appearing 44-year-old male and in no acute distress. HEENT: Head atraumatic,EOMI, pupils reactive, face symmetric, moist mucous membranes CARDIOVASCULAR: Regular rate and rhythm without murmurs, rubs or gallops. RESPIRATORY: Breath sounds equal bilaterally, no wheezes rales or rhonchi. ABDOMEN: Soft, nontender. Normoactive bowel sounds all 4 quadrants. No guarding or rebound. EXTREMITIES: Normal range of motion, no clubbing or edema. Neurovascularly intact NEUROLOGICAL: Alert and oriented x4.Normal gait and speech. Cranial nerves II through XII grossly intact. SKIN: Warm, dry, no laceration, no petechiae, no rashes or lesions. Course Orders Ordered: ED Orders 02/17/25 11:11 EKG-12 Lead Stat 02/17/25 12:20 Complete Blood Count AUTO DIFF Stat Comprehensive Metabolic Panel Stat D Dimer Stat Lactate (Lactic Acid) Stat Lipase Stat Troponin & CK Cardiac Panel Stat 02/17/25 12:56 CT abdomen pelvis w con Stat Ondansetron HCl (Ondansetron 4 Mg/2 Ml Inj) 4 mg IV NOW PRN PRN Reason: Nausea And Vomiting Last Admin: 02/17/25 12:42 Dose: 4 mg Documented By: BS Ondansetron HCl (Ondansetron 4 Mg Odt) 4 mg PO NOW PRN PRN Reason: Nausea And Vomiting Discontinued Medications Sodium Chloride (Normal Saline 0.9%) 1,000 mls @ 1,000 mls/hr IV BOLUS ONE Stop: 02/17/25 14:00 Last Admin: 02/17/25 13:18 Dose: 1,000 mls/hr Vital Signs Vital signs: Vital Signs - 8 hr 02/17/25 11:00 02/17/25 12:44 02/17/25 12:45 Temperature 98.1 F Pulse Rate 73 Respiratory Rate 24 16 Blood Pressure 163/88 H 114/75 Pulse Oximetry 100 99 Oxygen Delivery Method Room Air 02/17/25 12:45 02/17/25 13:00 02/17/25 13:00 Temperature Pulse Rate 60 61 Respiratory Rate 13 19 Blood Pressure 118/74 Pulse Oximetry 98 99 Oxygen Delivery Method 02/17/25 13:30 02/17/25 13:30 02/17/25 13:50 Temperature Pulse Rate 63 64 Respiratory Rate 22 17 Blood Pressure 132/67 Pulse Oximetry 100 95 Oxygen Delivery Method 02/17/25 13:50 Temperature Pulse Rate Respiratory Rate Blood Pressure 114/71 Pulse Oximetry Oxygen Delivery Method MDM - Abdominal Pain Lab Data 02/17/25 12:20 02/17/25 12:20 Labs: Lab Results 02/17/25 Range/Units 12:20 WBC 12.3 H (4.5-11.0) X10^3/uL RBC 4.61 (4.5-5.9) X10^6/uL Hgb 14.6 (13.5-17.5) g/dL Hct 42.7 (41-53) % MCV 92.6 (80-100) fL MCH 31.7 (26-34) PG MCHC 34.2 (30-36) % RDW 13.6 (11.6-14.8) % Plt Count 304 (150-400) X10^3/uL Neut % (Auto) 76.9 H (50-75) % Lymph % (Auto) 14.5 L (25-40) % [place] % (Auto) 7.9 (3-14) % Eos % (Auto) 0.2 L (2-4) % Baso % (Auto) 0.5 (0-2) % Neut # (Auto) 9500 H (1591-5067) /uL Lymph # (Auto) 1800 (9270-3924) /uL [place] # (Auto) 1000 H (0-900) /uL Eos # (Auto) 0 (0-450) /uL Baso # (Auto) 100 (0-100) /uL Sodium 135 L (137-145) mmol/L Potassium 3.4 (3.4-5.1) mmol/L Chloride 96 L (98-107) mmol/L Carbon Dioxide 27 (22-32) mmol/L BUN 14 (9-20) mg/dL Creatinine 0.58 L (0.66-1.25) mg/dL Estimated GFR > 60 (>60) mL/min BUN/Creatinine Ratio 24.1 H (6-22) Glucose 138 H (70-99) mg/dL Lactate 2.2 H (0.7-2.1) mmol/L Calcium 8.8 (8.4-10.2) mg/dL Total Bilirubin 0.8 (0.2-1.3) mg/dL AST 30 (17-59) IU/L ALT 23 (<50) IU/L Alkaline Phosphatase 53 (38-126) U/L Total Creatine Kinase 76 (55-170) U/L Troponin I < 0.012 (0.01-0.034) ng/mL Total Protein 7.0 (6.3-8.2) g/dL Albumin 4.4 (3.5-5.0) g/dL Globulin 2.6 (1.7-4.1) g/dL Albumin/Globulin Ratio 1.7 (1.0-2.8) Lipase 36 (23-300) U/L Imaging Data CT scan - abdomen/pelvis: Radiologist's Impression: PROCEDURE: CT ABDOMEN PELVIS W CON INDICATIONS: ab pain TECHNIQUE: After the administration of intravenous contrast, axial sections acquired from the lung bases to the pubic symphysis. Coronal and sagittal reformats were performed. For radiation dose reduction, the following was used: automated exposure control, adjustment of mA and/or kV according to patient size. COMPARISON: [facility], CT, CT ABDOMEN PELVIS W CON, 02/17/2024, 12:11. [facility], CT, CT ABDOMEN PELVIS W CON, 11/12/2022, 1:37. FINDINGS: Image quality: Diagnostic. Lower Chest: No significant findings. ABDOMEN: Liver: No solid mass. Gallbladder: No radiopaque gallstones or wall thickening. Biliary ducts: No biliary dilation. Pancreas: No ductal dilation. Spleen: Size is within normal limits. Adrenal Glands: No adrenal nodules. Kidneys and Ureters: No hydronephrosis. No solid mass. No complex renal cystic lesion which requires follow up. Stomach and Bowel: Normal colonic caliber, without significant wall thickening. Peritoneum: No abnormal intraperitoneal fluid. No free air. Ventral Wall: No significant ventral hernia. Abdominal Nodes: No retroperitoneal or mesenteric adenopathy by size criteria. Vessels: Aorta and inferior vena cava are normal in size. PELVIS: Pelvic Organs: Unremarkable. Bladder: No bladder wall thickening, accounting for underdistention. Pelvic Nodes: No enlarged lymph nodes. Miscellaneous: No inguinal hernias are seen. Bones: No aggressive osseous abnormality. IMPRESSION: Normal examination, source of nausea and vomiting with abdominal pain is not seen. What appears to be a normal appendix is found at the right lower quadrant and there also are no secondary CT signs of appendicitis. Dictated by: Ankit Garza M.D. on 02/17/2025 at 13:55 Approved by: Ankit Garza M.D. on 02/17/2025 at 13:57 MDM Narrative Medical decision making narrative: MDM CC: Abdominal pain chest pain nausea Complicating co-morbidities: No DrMukesh daily marijuana Data collected from: Patient Medical records reviewed: Hiatal hernia, PCP note 03/28/2024 Differential considered: Cyclic vomiting secondary to marijuana use bowel obstruction Exam documented above, pertinent findings include: Alert well-appearing 44-year-old male abdomen is soft minimally tender negative Ivan's sign Lab Test results independently reviewed as above. Pertinent findings: CBC shows WBC is 12.3 no anemia CMP no electrolyte abnormality no hypokalemia potassium is 0.58 glucose 138 Dimer less than 215, unlikely pulmonary embolisms Troponin negative Independently reviewed EKG as above rhythm EKGs 1. Sinus arrhythmia rate 63 HI interval 144 QRS [address] changes Imaging studies independently reviewed: CT abdomen pelvis no cause for pain Consultations: None Treatments: Zofran IV fluids Reglan and proton Re-evaluations: Patient tolerating fluids Discussion: Patient is a 44-year-old male presenting today with abdominal pain chest pain. He does smoke on a daily no prior history of cyclic vomiting although on history sounds like he does he says never been to the ER for it. Blood work is overall reassuring no significant dehydration CT does not show any kind of abnormality. He is having some abnormal chest pain troponin and EKGs are negative. D-dimer is also negative he had a this time patient feels ready able to go home Discharge Plan Departure Patient Disposition: Home Clinical Impression: Vomiting Instructions: DI for Vomiting -- Adult Activity Restrictions/Additional Instructions: *You have been diagnosed with vomiting *What to do: At this time increase fluids as tolerated *Continue to take medications as directed Zofran 4 mg every 8 hours if needed for nausea or *Follow up with your primary care provider in 2-3 days or call [phone] *Return to ER if you should have persistent vomiting increasing abdominal pain or any new, worsening or concerning symptoms Prescriptions: New ondansetron 4 mg tablet,disintegrating 4 mg PO Q6-8H PRN (Reason: nausea and vomiting) Qty: 10 0RF No Action Anoro Ellipta 62.5-25 mcg/actuation blister with device 1 inh inhalation DAILY Qty: 60 2RF albuterol sulfate 90 mcg/actuation HFA aerosol inhaler 2 puff inhalation Q4-6H PRN (Reason: shortness of breath or wheezing) Qty: 8.5 2RF ondansetron 4 mg tablet,disintegrating 4 mg PO Q6H PRN (Reason: nausea and vomiting) Qty: 10 0RF Referrals: Yarely Dang MD [Primary Care Provider, Family Practice] Stand Alone Forms: Patient Portal/API
[2025-02-17 12:47] LABS: Creatine Kinase 76 U/L (55-170)
[2025-02-17 12:48] LABS: Blood Urea Nitrogen 14 mg/dL (9-20); Carbon Dioxide 27 mmol/L (22-32); Chloride 96 mmol/L (98-107); HEMOLYSIS < 15 (0-50); Potassium 3.4 mmol/L (3.4-5.1); Sodium 135 mmol/L (137-145)
[2025-02-17 12:49] LABS: Alanine Aminotransferase 23 IU/L (<50); Albumin 4.4 g/dL (3.5-5.0); Albumin Globulin Ratio 1.7 (1.0-2.8); Alkaline Phosphatase 53 U/L (38-126); Calcium 8.8 mg/dL (8.4-10.2); Estimated Glomerular Filt Rate > 60 mL/min (>60); Globulin 2.6 g/dL (1.7-4.1); Glucose 138 mg/dL (70-99); Lipase 36 U/L (23-300); Total Protein 7.0 g/dL (6.3-8.2)
[2025-02-17 12:53] LABS: Lactate (Lactic Acid) 2.2 mmol/L (0.7-2.1)
--- NOTE | 2025-02-17 12:56 | DI.CT.S_ITS ---
PROCEDURE: CT ABDOMEN PELVIS W CON INDICATIONS: ab pain TECHNIQUE: After the administration of intravenous contrast, axial sections acquired from the lung bases to the pubic symphysis. Coronal and sagittal reformats were performed. For radiation dose reduction, the following was used: automated exposure control, adjustment of mA and/or kV according to patient size. COMPARISON: [facility], CT, CT ABDOMEN PELVIS W CON, 02/17/2024, 12:11. [facility], CT, CT ABDOMEN PELVIS W CON, 11/12/2022, 1:37. FINDINGS: Image quality: Diagnostic. Lower Chest: No significant findings. ABDOMEN: Liver: No solid mass. Gallbladder: No radiopaque gallstones or wall thickening. Biliary ducts: No biliary dilation. Pancreas: No ductal dilation. Spleen: Size is within normal limits. Adrenal Glands: No adrenal nodules. Kidneys and Ureters: No hydronephrosis. No solid mass. No complex renal cystic lesion which requires follow up. Stomach and Bowel: Normal colonic caliber, without significant wall thickening. Peritoneum: No abnormal intraperitoneal fluid. No free air. Ventral Wall: No significant ventral hernia. Abdominal Nodes: No retroperitoneal or mesenteric adenopathy by size criteria. Vessels: Aorta and inferior vena cava are normal in size. PELVIS: Pelvic Organs: Unremarkable. Bladder: No bladder wall thickening, accounting for underdistention. Pelvic Nodes: No enlarged lymph nodes. Miscellaneous: No inguinal hernias are seen. Bones: No aggressive osseous abnormality. IMPRESSION: Normal examination, source of nausea and vomiting with abdominal pain is not seen. What appears to be a normal appendix is found at the right lower quadrant and there also are no secondary CT signs of appendicitis. Dictated by: Ankit Garza M.D. on 02/17/2025 at 13:55 Approved by: Ankit Garza M.D. on 02/17/2025 at 13:57
[2025-02-17 13:00] LABS: Troponin I < 0.012 ng/mL (0.01-0.034)
[2025-02-17] MEDS: SODIUM CHLORIDE 0.9% 1,000 ML 1000 ML IV (13:18)
[2025-02-17 13:58] LABS: Reflexed Lactate in 2 Hours Y
[2025-02-17] MEDS: PANTOPRAZOLE 40 MG VIAL IV (14:33)
[2025-02-17] MEDS: METOCLOPRAMIDE 10 MG/2 ML INJ IV (14:33)
[2025-02-17 14:49] LABS: Lactate 2HR (Lactic Acid Rflx) 1.0 mmol/L (0.7-2.1)
== END 2025-02-17 16:49 | disposition home or self-care (01) ==
PROVIDERS: Emergency Provider Emergency Medicine; Family Provider Family Medicine; PCP Family Medicine
DX: R11.2 Nausea with vomiting, unspecified (principal); R07.9 Chest pain, unspecified; R10.9 Unspecified abdominal pain; F12.90 Cannabis use, unspecified, uncomplicated
CPT/HCPCS: 36415; 74177; 80053; 82550; 83605; 83690; 84484; 85025; 85379; 93005; 96361; 96374; 96375; 99283; 99284; J2405; J2470; J2765; Q9967